=== PATIENT | male | born 1945 | race Hispanic/Latino ===

== ENCOUNTER → 2021-02-21 | Outpatient (CLI) | payer MEDICARE ==
[~2021-02-21] VITALS: Ht 172.7 cm; Wt 90.7 kg
[~2021-02-21] MED LIST: REGADENOSON 0.4 MG/5 ML PF SYG IVP ONE; REGADENOSON 0.4 MG/5 ML PF SYG IVP SCH
== END | disposition home or self-care (01) ==
LOC: SHCH 09:32
PROVIDERS: ATTEND Internal Medicine Cardiovascular Disease
DX: I25.89 Other forms of chronic ischemic heart disease (principal); R06.09 Other forms of dyspnea; I20.9 Angina pectoris, unspecified
CPT/HCPCS: 78452; 93017; 96374; A9500 ×2; J2785

== ENCOUNTER → 2021-02-23 | Outpatient (CLI) | payer MEDICARE | END | disposition home or self-care (01) | LOC: SHCH 09:44 | PROVIDERS: ATTEND Internal Medicine Cardiovascular Disease | DX: I87.2 Venous insufficiency (chronic) (peripheral) (principal) | CPT/HCPCS: 93970 ==

== ENCOUNTER → 2021-07-19 | Outpatient (CLI) | payer MEDICARE ==
[~2021-07-19] MED LIST changes: +LIDOCAINE HCL 4% LTA SOL 4 ML VIAL TP ONE; -REGADENOSON 0.4 MG/5 ML PF SYG IVP ONE; -REGADENOSON 0.4 MG/5 ML PF SYG IVP SCH
== END | disposition home or self-care (01) ==
LOC: WHH 09:33
PROVIDERS: ATTEND Family Medicine
DX: E11.622 Type 2 diabetes mellitus with other skin ulcer (principal); L97.222 Non-pressure chronic ulcer of left calf with fat layer exposed; E11.42 Type 2 diabetes mellitus with diabetic polyneuropathy; I25.799 Atherosclerosis of other coronary artery bypass graft(s) with unspecified angina pectoris; I87.8 Other specified disorders of veins; I10 Essential (primary) hypertension; N40.0 Benign prostatic hyperplasia without lower urinary tract symptoms; K21.9 Gastro-esophageal reflux disease without esophagitis; M19.90 Unspecified osteoarthritis, unspecified site; Z79.4 Long term (current) use of insulin; Z79.899 Other long term (current) drug therapy; Z79.82 Long term (current) use of aspirin
CPT/HCPCS: 11042; 11045; A4450; A6021; A6197; G0463

== ENCOUNTER 2021-11-22 13:23 | Emergency (ER) | payer MEDICARE ==
[2021-11-22 14:01] LABS: BASOPHILS % (AUTO) 0.4 % (0.0-5.0); EOSINOPHILS % (AUTO) 1.5 % (0.0-8.0); HEMATOCRIT 36.2 % (42-54); MEAN CORPUSCULAR HEMOGLOBIN 30.7 pg (27.0-33.0); MEAN CORPUSCULAR HGB CONC 32.6 g/dL (32.0-36.0); MEAN CORPUSCULAR VOLUME 94.3 fL (79-99); MONOCYTES % (AUTO) 8.1 % (3.0-13.0); NEUTROPHILS % (AUTO) 79.7 % (40.0-77.0); PLATELET COUNT (AUTO) 157 K/uL (130-400); RED BLOOD CELL COUNT(AUTO) 3.84 MIL/uL (4.50-6.20); RED CELL DISTRIBUTION WIDTH 14.4 % (11.0-15.5); WHITE BLOOD COUNT (AUTO) 7.9 K/uL (4.8-10.8)
[2021-11-22 14:17] LABS: ALBUMIN 3.4 g/dL (3.5-5.0); BILIRUBIN,TOTAL 0.6 mg/dL (0.2-1.0); CREATININE 1.7 mg/dL (0.5-1.5); POTASSIUM 3.4 mmol/L (3.5-5.1); TOTAL PROTEIN, SERUM 6.3 g/dL (6.0-8.3)
[2021-11-22 14:19] LABS: APPEARANCE,URINE CLEAR (CLEAR); BILIRUBIN,URINE NEGATIVE (NEGATIVE); COLOR,URINE YELLOW (YELLOW); GLUCOSE, URINE (UA) 250 mg/dL (NEGATIVE); KETONES,URINE NEGATIVE (NEGATIVE); LEUKOCYTE ESTERASE ,URINE NEGATIVE (NEGATIVE); NITRATE,URINE NEGATIVE (NEGATIVE); OCCULT BLOOD,URINE TRACE-INTACT (NEGATIVE); PROTEIN,URINE 100 mg/dL (NEGATIVE); UROBILINOGEN,URINE 0.2 mg/dL (0.2-1.0)
[2021-11-22 14:38] LABS: BACTERIA,URINE Few /HPF (None Seen); SQUAMOUS EPITHELIAL CELL,UR Few /HPF (0-2)
[2021-11-22 14:39] LABS: OTHER CASTS, URINE MIXED CELL CASTS 1+ /LPF (None Seen)
[2021-11-22 15:50] VITALS: BP 180/76
== END 2021-11-22 16:33 | disposition home or self-care (01) ==
LOC: EDH 13:23
DX: E10.649 Type 1 diabetes mellitus with hypoglycemia without coma (principal); E78.00 Pure hypercholesterolemia, unspecified; I10 Essential (primary) hypertension; I25.10 Atherosclerotic heart disease of native coronary artery without angina pectoris; K21.9 Gastro-esophageal reflux disease without esophagitis
CPT/HCPCS: 36415; 80053; 81001; 82948; 85025; 87088

== ENCOUNTER 2022-02-14 11:12 | Inpatient (IN) | payer MEDICARE ==
[~2022-02-14] VITALS: Ht 172.7 cm; Wt 82.2 kg
[2022-02-14 11:36] LABS: APPEARANCE,URINE Clear (CLEAR); BILIRUBIN,URINE Negative (NEGATIVE); COLOR,URINE Yellow (YELLOW); GLUCOSE, URINE (UA) Negative (NEGATIVE); KETONES,URINE Negative (NEGATIVE); LEUKOCYTE ESTERASE ,URINE Negative (NEGATIVE); NITRATE,URINE Negative (NEGATIVE); OCCULT BLOOD,URINE Negative (NEGATIVE); PH,URINE 8.5 (5.0-8.0); PROTEIN,URINE 300 mg/dL (NEGATIVE); UROBILINOGEN,URINE 0.2 mg/dL (0.2-1.0)
[2022-02-14 12:01] LABS: BACTERIA,URINE Rare /HPF (None Seen); RBC,URINE 0-1 /HPF (0-1); SQUAMOUS EPITHELIAL CELL,UR Rare /HPF (0-2); WBC,URINE 0-1 /HPF (0-1)
[2022-02-14 12:05] LABS: CREATININE 1.9 mg/dL (0.5-1.5); POTASSIUM 3.8 mmol/L (3.5-5.1)
[2022-02-14 12:10] LABS: ALBUMIN 3.2 g/dL (3.5-5.0); BASOPHILS % (AUTO) 0.3 % (0.0-5.0); BILIRUBIN,TOTAL 0.4 mg/dL (0.2-1.0); EOSINOPHILS % (AUTO) 2.4 % (0.0-8.0); LYMPHOCYTES % (AUTO) 9.8 % (21.0-51.0); MEAN CORPUSCULAR HEMOGLOBIN 29.5 pg (27.0-33.0); MEAN CORPUSCULAR HGB CONC 32.5 g/dL (32.0-36.0); MEAN CORPUSCULAR VOLUME 90.7 fL (79-99); MONOCYTES % (AUTO) 7.5 % (3.0-13.0); NEUTROPHILS % (AUTO) 79.7 % (40.0-77.0); PLATELET COUNT (AUTO) 151 K/uL (130-400); RED BLOOD CELL COUNT(AUTO) 3.97 MIL/uL (4.50-6.20); RED CELL DISTRIBUTION WIDTH 12.3 % (11.0-15.5); TOTAL PROTEIN, SERUM 6.3 g/dL (6.0-8.3)
[2022-02-14] MEDS ORDERED: FUROSEMIDE 20MG VIAL IV ONE (13:30)
[2022-02-14] MEDS ORDERED: ONDANSETRON 4MG INJ IV PRN (15:00)
[2022-02-14] MEDS ORDERED: ACETAMINOPHEN 325 MG TAB PO PRN ×2 (15:00)
[2022-02-14] MEDS ORDERED: NITROGLYCERIN 0.4 MG SL TAB SL PRN (15:00)
[2022-02-14 15:17] LABS: RETICULOCYTE % (AUTO) 0.78 % (0.42-2.23)
[2022-02-14 15:29] LABS: HEMOGLOBIN A1C 7.1 % (4.0-6.0)
[2022-02-14] MEDS ORDERED: [UNRECOGNIZED DRUG - OTHER] MISC SCH (15:30)
[2022-02-14 15:41] LABS: % IRON SATURATION 17.9 % (30-44)
[2022-02-14] MEDS ORDERED: TAMSULOSIN HCL 0.4 MG CAP.ER.24H PO SCH (16:00)
[2022-02-14] MEDS ORDERED: DOCU100T PO (16:33)
[2022-02-14] MEDS ORDERED: CLON0.1T PO (16:37)
[2022-02-14] MEDS ORDERED: DOCU-116 PO (16:37)
[2022-02-14] MEDS ORDERED: FLUT15.845 NS (16:38)
[2022-02-14] MEDS ORDERED: ASPI-1197 PO (16:39)
[2022-02-14] MEDS ORDERED: SEMA7TAB2 PO (16:41)
[2022-02-14] MEDS ORDERED: PANT40TA54 PO (16:41)
[2022-02-14] MEDS ORDERED: AMLO2.5T4 PO (16:44)
[2022-02-14] MEDS ORDERED: MONT-39 PO (16:46)
[2022-02-14] MEDS ORDERED: LISI30TA4 PO (16:47)
[2022-02-14] MEDS ORDERED: CLOP75TA32 PO (16:48)
[2022-02-14] MEDS ORDERED: CARV25TA PO (16:49)
[2022-02-14] MEDS ORDERED: HYDR12.54 PO (16:50)
[2022-02-14] MEDS ORDERED: SIME80TA78 PO (16:50)
[2022-02-14] MEDS ORDERED: GABA300S PO (16:51)
[2022-02-14] MEDS ORDERED: CETI5TAB12 PO (16:51)
[2022-02-14] MEDS ORDERED: ATOR-2 PO (16:52)
[2022-02-14] MEDS ORDERED: TAMS-1 PO (16:53)
[2022-02-14 17:25] LABS: CREATINE KINASE, TOTAL 137 U/L (21-232); MYOGLOBIN 98 ng/mL (10-92); THYROID STIMULATING HORMONE 0.47 uIU/mL (0.36-3.74)
[2022-02-14] MEDS ORDERED: LABETALOL 20MG VIAL IV PRN (18:30)
[2022-02-14] MEDS ORDERED: HYDROCHLOROTHIAZIDE 25 MG TABLET PO ONE (18:30)
[2022-02-14 19:18] VITALS: BP 163/79
[2022-02-14] MEDS ORDERED: COMPOUND IV MISC 1 EACH IVSOLN MISC PRN (19:30)
[2022-02-14] MEDS: FUROSEMIDE 40MG VIAL IVP SCH (21:07)
[2022-02-14] MEDS: BISACODYL 5 MG TABLET.DR PO SCH (21:07)
[2022-02-14] MEDS: DOCUSATE SODIUM 100 MG CAP PO SCH (21:07)
[2022-02-14] MEDS: GABAPENTIN 300 MG CAPSULE PO SCH (21:08)
[2022-02-14] MEDS: CARVEDILOL 25 MG TABLET PO SCH (21:08)
[2022-02-14] MEDS: ATORVASTATIN 40 MG TABLET PO SCH (21:08)
[2022-02-14] MEDS: LISINOPRIL 10 MG TABLET PO SCH (21:09)
[2022-02-14] MEDS: IRON SUCROSE COMPLEX 300 MG in 0.9%NACL 50ML 50 ML IV SCH (21:10)
[2022-02-14] MEDS: FAMOTIDINE 20MG TAB PO SCH (22:39)
[2022-02-14] MEDS: FLUTICASONE PROPIONATE 50MCG/SPRAY 16 GM BOTTLE EN SCH (22:40)
[2022-02-14 23:24] LABS: PROTEIN,URINE RANDOM 10.3 mg/dL (0-11.9)
[2022-02-15] VITALS (8 sets, daily range): BP systolic 131–188; BP diastolic 59–81
[2022-02-15 05:02] LABS: HEMATOCRIT 40.7 % (42-54); MEAN CORPUSCULAR HEMOGLOBIN 29.9 pg (27.0-33.0); MEAN CORPUSCULAR HGB CONC 33.2 g/dL (32.0-36.0); RED BLOOD CELL COUNT(AUTO) 4.52 MIL/uL (4.50-6.20); RED CELL DISTRIBUTION WIDTH 12.2 % (11.0-15.5); WHITE BLOOD COUNT (AUTO) 6.6 K/uL (4.8-10.8)
[2022-02-15 05:22] LABS: CREATININE 1.8 mg/dL (0.5-1.5); POTASSIUM 3.5 mmol/L (3.5-5.1)
[2022-02-15] MEDS: BISACODYL 5 MG TABLET.DR PO SCH ×2 (09:00→20:45)
[2022-02-15] MEDS ORDERED: ENOXAPARIN SODIUM 40 MG/0.4 ML SYRINGE SQ SCH (09:00)
[2022-02-15] MEDS: TAMSULOSIN HCL 0.4 MG CAP.ER.24H PO SCH ×2 (09:00→10:30)
[2022-02-15] MEDS: FAMOTIDINE 20MG TAB PO SCH (10:28)
[2022-02-15] MEDS: AMLODIPINE 2.5 MG TAB PO SCH (10:28)
[2022-02-15] MEDS: FLUTICASONE PROPIONATE 50MCG/SPRAY 16 GM BOTTLE EN SCH ×2 (10:28→21:07)
[2022-02-15] MEDS: HYDROCHLOROTHIAZIDE 25 MG TABLET PO SCH (10:29)
[2022-02-15] MEDS: CLOPIDOGREL 75MG TAB PO SCH (10:29)
[2022-02-15] MEDS: MONTELUKAST SODIUM 10 MG TAB PO SCH (10:30)
[2022-02-15] MEDS: CARVEDILOL 25 MG TABLET PO SCH ×2 (10:30→20:48)
[2022-02-15] MEDS: ASPIRIN 81MG CHEW TAB PO SCH (10:31)
[2022-02-15] MEDS: PANTOPRAZOLE 40 MG TAB DR PO SCH (10:31)
[2022-02-15] MEDS: GABAPENTIN 300 MG CAPSULE PO SCH ×2 (10:31→20:48)
[2022-02-15] MEDS: LISINOPRIL 10 MG TABLET PO SCH ×2 (10:31→20:53)
[2022-02-15] MEDS: FUROSEMIDE 40MG VIAL IVP SCH ×3 (10:31→20:49)
[2022-02-15] MEDS: DOCUSATE SODIUM 100 MG CAP PO SCH ×2 (10:32→20:44)
[2022-02-15] MEDS: IRON SUCROSE COMPLEX 300 MG in 0.9%NACL 50ML 50 ML IV SCH (11:02)
[2022-02-15] MEDS: ATORVASTATIN 40 MG TABLET PO SCH (20:45)
[2022-02-16 04:01] VITALS: BP 156/88
[2022-02-16 07:20] LABS: HEMATOCRIT 36.8 % (42-54); MEAN CORPUSCULAR HEMOGLOBIN 29.3 pg (27.0-33.0); MEAN CORPUSCULAR HGB CONC 33.4 g/dL (32.0-36.0); MEAN CORPUSCULAR VOLUME 87.6 fL (79-99); RED BLOOD CELL COUNT(AUTO) 4.2 MIL/uL (4.50-6.20); RED CELL DISTRIBUTION WIDTH 12.6 % (11.0-15.5)
[2022-02-16 07:41] LABS: CREATININE 2.3 mg/dL (0.5-1.5); POTASSIUM 3.4 mmol/L (3.5-5.1)
[2022-02-16 08:33] VITALS: BP 132/56
[2022-02-16] MEDS ORDERED: KCL 20 MEQ ERTAB PO ONE (08:35)
[2022-02-16] MEDS: TAMSULOSIN HCL 0.4 MG CAP.ER.24H PO SCH ×2 (09:00→09:36)
[2022-02-16] MEDS: IRON SUCROSE COMPLEX 300 MG in 0.9%NACL 50ML 50 ML IV SCH (09:20)
[2022-02-16] MEDS: AMLODIPINE 2.5 MG TAB PO SCH (09:21)
[2022-02-16] MEDS: FLUTICASONE PROPIONATE 50MCG/SPRAY 16 GM BOTTLE EN SCH ×2 (09:21→20:17)
[2022-02-16] MEDS: DOCUSATE SODIUM 100 MG CAP PO SCH ×2 (09:21→20:16)
[2022-02-16] MEDS: CARVEDILOL 25 MG TABLET PO SCH ×2 (09:22→20:15)
[2022-02-16] MEDS: GABAPENTIN 300 MG CAPSULE PO SCH ×2 (09:22→20:15)
[2022-02-16] MEDS: HYDROCHLOROTHIAZIDE 25 MG TABLET PO SCH (09:22)
[2022-02-16] MEDS: LISINOPRIL 10 MG TABLET PO SCH ×2 (09:23→20:15)
[2022-02-16] MEDS: CLOPIDOGREL 75MG TAB PO SCH (09:23)
[2022-02-16] MEDS: MONTELUKAST SODIUM 10 MG TAB PO SCH (09:23)
[2022-02-16] MEDS: BISACODYL 5 MG TABLET.DR PO SCH ×2 (09:23→20:15)
[2022-02-16] MEDS: ASPIRIN 81MG CHEW TAB PO SCH (09:23)
[2022-02-16] MEDS: PANTOPRAZOLE 40 MG TAB DR PO SCH (09:23)
[2022-02-16] MEDS ORDERED: 0.9%NACL 1000ML 1,000 ML IV SCH (09:30)
[2022-02-16] MEDS ORDERED: POTASSIUM CHLORIDE 10% ELIXIR 20 MEQ/15 ML UDCUP PO PRN (09:30)
[2022-02-16] MEDS ORDERED: LIDOCAINE HCL-MPF 1% 2ML VIAL IV PRN (09:30)
[2022-02-16] MEDS ORDERED: POTASSIUM CHLORIDE 20MEQ/100ML 100 ML IV PRN (09:30)
[2022-02-16] MEDS ORDERED: KCL 20 MEQ ERTAB PO PRN (09:30)
[2022-02-16] MEDS ORDERED: 0.9%NACL 1000ML 1,000 ML IV ONE (09:35)
[2022-02-16] MEDS ORDERED: LACTULOSE 20 GM/30 ML UDCUP PO ONE (12:00)
[2022-02-16 12:51] VITALS: BP 108/60
[2022-02-16 16:33] VITALS: BP 158/74
[2022-02-16 19:55] VITALS: BP 151/61
[2022-02-16] MEDS: ATORVASTATIN 40 MG TABLET PO SCH (20:16)
[2022-02-16 23:35] VITALS: BP 126/71
[2022-02-17 03:34] VITALS: BP 153/61
[2022-02-17 04:12] LABS: BASOPHILS % (AUTO) 0.3 % (0.0-5.0); EOSINOPHILS % (AUTO) 2.4 % (0.0-8.0); HEMATOCRIT 36.9 % (42-54); LYMPHOCYTES % (AUTO) 17.8 % (21.0-51.0); MEAN CORPUSCULAR HEMOGLOBIN 29.9 pg (27.0-33.0); MEAN CORPUSCULAR HGB CONC 34.1 g/dL (32.0-36.0); MEAN CORPUSCULAR VOLUME 87.6 fL (79-99); MONOCYTES % (AUTO) 13.6 % (3.0-13.0); NEUTROPHILS % (AUTO) 65.6 % (40.0-77.0); PLATELET COUNT (AUTO) 163 K/uL (130-400); RED BLOOD CELL COUNT(AUTO) 4.21 MIL/uL (4.50-6.20); RED CELL DISTRIBUTION WIDTH 12.9 % (11.0-15.5)
[2022-02-17 04:37] LABS: ALBUMIN 3.1 g/dL (3.5-5.0); BILIRUBIN,TOTAL 0.2 mg/dL (0.2-1.0); CREATININE 2.1 mg/dL (0.5-1.5); TOTAL PROTEIN, SERUM 6.1 g/dL (6.0-8.3)
[2022-02-17] MEDS: DOCUSATE SODIUM 100 MG CAP PO SCH (08:06)
[2022-02-17] MEDS: CARVEDILOL 25 MG TABLET PO SCH (08:06)
[2022-02-17] MEDS: AMLODIPINE 2.5 MG TAB PO SCH (08:06)
[2022-02-17] MEDS: CLOPIDOGREL 75MG TAB PO SCH (08:06)
[2022-02-17] MEDS: GABAPENTIN 300 MG CAPSULE PO SCH (08:06)
[2022-02-17] MEDS: LISINOPRIL 10 MG TABLET PO SCH (08:07)
[2022-02-17] MEDS: HYDROCHLOROTHIAZIDE 25 MG TABLET PO SCH (08:07)
[2022-02-17] MEDS: TAMSULOSIN HCL 0.4 MG CAP.ER.24H PO SCH (08:07)
[2022-02-17] MEDS: ASPIRIN 81MG CHEW TAB PO SCH (08:07)
[2022-02-17] MEDS: PANTOPRAZOLE 40 MG TAB DR PO SCH (08:07)
[2022-02-17] MEDS: BISACODYL 5 MG TABLET.DR PO SCH (08:07)
[2022-02-17] MEDS: MONTELUKAST SODIUM 10 MG TAB PO SCH (08:07)
[2022-02-17] MEDS: FLUTICASONE PROPIONATE 50MCG/SPRAY 16 GM BOTTLE EN SCH (08:09)
[2022-02-17] MEDS: IRON SUCROSE COMPLEX 300 MG in 0.9%NACL 50ML 50 ML IV SCH (08:13)
[2022-02-17 08:34] VITALS: BP 161/80
[2022-02-17] MEDS ORDERED: FURO20TA6 PO (11:15)
[2022-02-17 12:12] VITALS: BP 157/70
== END 2022-02-17 13:35 | disposition home or self-care (01) | DRG 291 ==
LOC: EDH 11:12 → EDHIP 14:37 → 2AH 18:11
PROVIDERS: ADMIT Internal Medicine; ATTEND Internal Medicine
DX: I13.0 Hypertensive heart and chronic kidney disease with heart failure and stage 1 through stage 4 chronic kidney disease, or unspecified chronic kidney disease (principal); I50.21 Acute systolic (congestive) heart failure; N17.9 Acute kidney failure, unspecified; E11.649 Type 2 diabetes mellitus with hypoglycemia without coma; Z87.891 Personal history of nicotine dependence; Z95.0 Presence of cardiac pacemaker; Z95.1 Presence of aortocoronary bypass graft; E78.00 Pure hypercholesterolemia, unspecified; N40.0 Benign prostatic hyperplasia without lower urinary tract symptoms; E11.22 Type 2 diabetes mellitus with diabetic chronic kidney disease; N18.9 Chronic kidney disease, unspecified; Z79.899 Other long term (current) drug therapy; I87.2 Venous insufficiency (chronic) (peripheral); I25.10 Atherosclerotic heart disease of native coronary artery without angina pectoris
CPT/HCPCS: 36415; 71045; 74018; 76770; 80048; 80053; 80061; 81001; 82270; 82550; 82570; 82607; 82728; 82746; 82948; 83036; 83540; 83550; 83874; 83880; 84132; 84145; 84156; 84300; 84443; 84484; 85025; 85027; 85045; 85378; 93005; 93306; 93970; 97039; G0378; J1650; J1756; J1940; J7030

== ENCOUNTER 2022-08-16 12:17 | Inpatient (IN) | payer MEDICARE ==
[~2022-08-16] VITALS: Ht 172.7 cm; Wt 93.8 kg
[~2022-08-16 12:17] MED LIST changes: +AMLO5TAB4 PO; +ASPI-1197 PO; +ATOR-2 PO; +BENZ-70 PO; +CALC-1009 PO; +CALC-131 PO; +CARV12.580 PO; +CEFD300C3 PO; +CETI5TAB12 PO; +CLOP75TA32 PO; +DOCU-280 PO; +DOCU100T PO; +DOXY100T21 PO; +FLUT15.845 NS; +GABA300C PO; +HYDR25 PO; -LIDOCAINE HCL 4% LTA SOL 4 ML VIAL TP ONE; +MONT-39 PO; +PANT40TA54 PO; +SEMA7TAB2 PO; +SIME80TA78 PO; +TAMS-1 PO
[2022-08-16 13:07] LABS: BASOPHILS % (AUTO) 0.3 % (0.0-5.0); EOSINOPHILS % (AUTO) 1.6 % (0.0-8.0); LYMPHOCYTES % (AUTO) 7.2 % (21.0-51.0); MEAN CORPUSCULAR HEMOGLOBIN 30.6 pg (27.0-33.0); MEAN CORPUSCULAR HGB CONC 33.4 g/dL (32.0-36.0); MEAN CORPUSCULAR VOLUME 91.6 fL (79-99); NEUTROPHILS % (AUTO) 82.6 % (40.0-77.0); PLATELET COUNT (AUTO) 157 K/uL (130-400); RED BLOOD CELL COUNT(AUTO) 3.82 MIL/uL (4.50-6.20); RED CELL DISTRIBUTION WIDTH 13.9 % (11.0-15.5); WHITE BLOOD COUNT (AUTO) 9.7 K/uL (4.8-10.8)
[2022-08-16 13:15] LABS: CREATININE 1.8 mg/dL (0.5-1.5); POTASSIUM 4.7 mmol/L (3.5-5.1)
[2022-08-16 13:22] LABS: ALBUMIN 3.7 g/dL (3.5-5.0); TOTAL PROTEIN, SERUM 7.1 g/dL (6.0-8.3)
[2022-08-16 13:25] LABS: B-TYPE NATRIURETIC PEPTIDE 872 pg/mL (0-100)
[2022-08-16 13:30] LABS: APPEARANCE,URINE CLEAR (CLEAR); BILIRUBIN,URINE NEGATIVE (NEGATIVE); COLOR,URINE LIGHT-YELLOW (YELLOW); GLUCOSE, URINE (UA) NEGATIVE (NEGATIVE); KETONES,URINE NEGATIVE (NEGATIVE); LEUKOCYTE ESTERASE ,URINE NEGATIVE Leu/uL (NEGATIVE); NITRATE,URINE NEGATIVE (NEGATIVE); OCCULT BLOOD,URINE SMALL (NEGATIVE); PH,URINE 6.5 (5.0-8.0); PROTEIN,URINE 100 mg/dL (NEGATIVE); UROBILINOGEN,URINE 0.2 mg/dL (0.2-1.0)
[2022-08-16 13:45] LABS: BACTERIA,URINE RARE /HPF (None Seen); WBC,URINE 0-1 /HPF (0-1)
[2022-08-16] MEDS ORDERED: FUROSEMIDE 40MG VIAL IV ONE (14:00)
[2022-08-16] MEDS ORDERED: LACTULOSE 20 GM/30 ML UDCUP PO PRN (16:30)
[2022-08-16] MEDS ORDERED: NITROGLYCERIN 0.4 MG SL TAB SL PRN (16:30)
[2022-08-16] MEDS ORDERED: ONDANSETRON 4MG INJ IV PRN (16:30)
[2022-08-16] MEDS ORDERED: POTASSIUM CHLORIDE 10% ELIXIR 20 MEQ/15 ML UDCUP PO PRN (16:30)
[2022-08-16] MEDS ORDERED: LIDOCAINE HCL-MPF 1% 2ML VIAL IV PRN (16:30)
[2022-08-16] MEDS ORDERED: DiphenhydrAMINE HCL 50 MG/ML VIAL IV PRN (16:30)
[2022-08-16] MEDS ORDERED: GUAIFENESIN-DM 200/20 MG 10 ML PO PRN (16:30)
[2022-08-16] MEDS ORDERED: ACETAMINOPHEN 325 MG TAB PO PRN ×2 (16:30)
[2022-08-16] MEDS ORDERED: POTASSIUM CHLORIDE 20MEQ/100ML 100 ML IV PRN (16:30)
[2022-08-16] MEDS ORDERED: KCL 20 MEQ ERTAB PO PRN (16:30)
[2022-08-16] MEDS ORDERED: MAGNESIUM 2GM PREMIX 50ML 50 ML IV PRN (16:30)
[2022-08-16] MEDS ORDERED: LABETALOL 20MG SYG IV ONE (16:30)
[2022-08-16] MEDS ORDERED: MAG/ALUM/SIMETH 30 ML UDCUP PO PRN (16:30)
[2022-08-16] MEDS ORDERED: DIPHENHYDRAMINE HCL 25 MG CAPSULE PO PRN (16:30)
[2022-08-16] MEDS ORDERED: HYDRALAZINE 20MG/ML VIAL IV ONE (17:30)
[2022-08-16] MEDS ORDERED: HYDRALAZINE 20MG/ML VIAL IV PRN (19:30)
[2022-08-16] MEDS ORDERED: LABETALOL 20MG VIAL IV PRN (19:30)
[2022-08-16] MEDS ORDERED: ACETAMINOPHEN 325 MG SUPPOSITORY RC ONE (19:48)
[2022-08-16] MEDS: CARVEDILOL 12.5 MG TABLET PO SCH (20:43)
[2022-08-16] MEDS: FAMOTIDINE 20MG VIAL IV SCH (20:44)
[2022-08-16] MEDS: FUROSEMIDE 40MG VIAL IVP SCH (20:44)
[2022-08-16] MEDS: HEPARIN 5,000 UNIT VIAL SQ SCH (20:44)
[2022-08-16] MEDS: HYDRALAZINE 25MG TABLET PO SCH (20:44)
[2022-08-16] MEDS ORDERED: FAMOTIDINE 20MG TAB PO SCH (21:00)
[2022-08-16 22:15] VITALS: BP 193/82
[2022-08-17] VITALS (7 sets, daily range): BP systolic 136–196; BP diastolic 61–80
[2022-08-17] MEDS ORDERED: REPA1TAB5 PO (00:23)
[2022-08-17] MEDS ORDERED: ACET325T51 PO (00:51)
[2022-08-17] MEDS ORDERED: ISOS30TA92 PO (00:51)
[2022-08-17] MEDS ORDERED: PIOG30TA70 PO (00:51)
[2022-08-17] MEDS ORDERED: HYDR12.54 PO (00:51)
[2022-08-17] MEDS ORDERED: LISI40TA9 PO (00:51)
[2022-08-17] MEDS ORDERED: DEXTROSE 50%-WATER 50 ML DISP.SYRIN IV PRN (01:30)
[2022-08-17] MEDS ORDERED: GLUCAGON 1MG KIT 1 MG ML IM PRN (01:30)
[2022-08-17 05:34] LABS: BASOPHILS % (AUTO) 0.3 % (0.0-5.0); EOSINOPHILS % (AUTO) 1.6 % (0.0-8.0); HEMATOCRIT 34.7 % (42-54); LYMPHOCYTES % (AUTO) 10.9 % (21.0-51.0); MEAN CORPUSCULAR HGB CONC 33.7 g/dL (32.0-36.0); MEAN CORPUSCULAR VOLUME 91.8 fL (79-99); MONOCYTES % (AUTO) 11.7 % (3.0-13.0); NEUTROPHILS % (AUTO) 75.2 % (40.0-77.0); PLATELET COUNT (AUTO) 151 K/uL (130-400); RED BLOOD CELL COUNT(AUTO) 3.78 MIL/uL (4.50-6.20); RED CELL DISTRIBUTION WIDTH 13.9 % (11.0-15.5); WHITE BLOOD COUNT (AUTO) 6.9 K/uL (4.8-10.8)
[2022-08-17 05:58] LABS: CREATININE 2.1 mg/dL (0.5-1.5); MAGNESIUM 1.8 mg/dL (1.80-2.40); PHOSPHORUS 3.3 mg/dL (2.5-4.9); POTASSIUM 3.9 mmol/L (3.5-5.1); THYROID STIMULATING HORMONE 0.66 uIU/mL (0.36-3.74)
[2022-08-17] MEDS: INSULIN HUMULIN R 100 UNIT/ML 3ML SQ SCH ×4 (06:42→21:00)
[2022-08-17] MEDS: SPIRONOLACTONE 25 MG TAB PO SCH (10:45)
[2022-08-17] MEDS: HYDRALAZINE 25MG TABLET PO SCH ×3 (10:45→22:09)
[2022-08-17] MEDS: FUROSEMIDE 40MG VIAL IVP SCH ×2 (10:45→22:09)
[2022-08-17] MEDS: FAMOTIDINE 20MG VIAL IV SCH ×2 (10:45→22:10)
[2022-08-17] MEDS: CARVEDILOL 12.5 MG TABLET PO SCH ×2 (10:46→22:09)
[2022-08-17] MEDS: HEPARIN 5,000 UNIT VIAL SQ SCH ×3 (10:56→22:10)
[2022-08-17] MEDS: ASPIRIN 81MG CHEW TAB PO SCH (14:30)
[2022-08-17] MEDS ORDERED: ATORVASTATIN 40 MG TABLET PO SCH (21:00)
[2022-08-17] MEDS: GABAPENTIN 300 MG CAPSULE PO SCH (22:09)
[2022-08-18 02:53] VITALS: BP 162/62
[2022-08-18 03:49] LABS: BASOPHILS % (AUTO) 0.3 % (0.0-5.0); EOSINOPHILS % (AUTO) 1.4 % (0.0-8.0); HEMATOCRIT 33.7 % (42-54); LYMPHOCYTES % (AUTO) 14.9 % (21.0-51.0); MEAN CORPUSCULAR HEMOGLOBIN 30.2 pg (27.0-33.0); MEAN CORPUSCULAR HGB CONC 33.2 g/dL (32.0-36.0); MEAN CORPUSCULAR VOLUME 90.8 fL (79-99); MONOCYTES % (AUTO) 13.1 % (3.0-13.0); PLATELET COUNT (AUTO) 158 K/uL (130-400); RED BLOOD CELL COUNT(AUTO) 3.71 MIL/uL (4.50-6.20); RED CELL DISTRIBUTION WIDTH 13.9 % (11.0-15.5); WHITE BLOOD COUNT (AUTO) 7.7 K/uL (4.8-10.8)
[2022-08-18 04:03] LABS: ALBUMIN 3.1 g/dL (3.5-5.0); CREATININE 2.1 mg/dL (0.5-1.5); POTASSIUM 3.8 mmol/L (3.5-5.1); TOTAL PROTEIN, SERUM 6.4 g/dL (6.0-8.3)
[2022-08-18] MEDS: INSULIN HUMULIN R 100 UNIT/ML 3ML SQ SCH (06:49)
[2022-08-18 08:00] VITALS: BP 188/78
[2022-08-18] MEDS ORDERED: ISOSORBIDE MONO 30MG SR TAB PO SCH (09:00)
[2022-08-18] MEDS ORDERED: AMLODIPINE 5 MG TAB PO SCH (09:00)
[2022-08-18] MEDS ORDERED: TAMSULOSIN HCL 0.4 MG CAP.ER.24H PO SCH (09:00)
[2022-08-18] MEDS ORDERED: MONTELUKAST SODIUM 10 MG TAB PO SCH (09:00)
[2022-08-18] MEDS ORDERED: CLOPIDOGREL 75MG TAB PO SCH (09:00)
[2022-08-18] MEDS ORDERED: PIOGLITAZONE 30MG TAB PO SCH (09:00)
[2022-08-18] MEDS ORDERED: LISINOPRIL 40 MG TABLET PO SCH (09:00)
[2022-08-18] MEDS ORDERED: HYDROCHLOROTHIAZIDE 25 MG TABLET PO SCH (09:00)
[2022-08-18] MEDS: FAMOTIDINE 20MG VIAL IV SCH (09:20)
[2022-08-18] MEDS: FUROSEMIDE 40MG VIAL IVP SCH (09:21)
[2022-08-18] MEDS: GABAPENTIN 300 MG CAPSULE PO SCH (09:21)
[2022-08-18] MEDS: SPIRONOLACTONE 25 MG TAB PO SCH (09:21)
[2022-08-18] MEDS: HYDRALAZINE 25MG TABLET PO SCH (09:21)
[2022-08-18 09:22] VITALS: BP 188/78
[2022-08-18] MEDS: CARVEDILOL 12.5 MG TABLET PO SCH (09:22)
[2022-08-18] MEDS: ASPIRIN 81MG CHEW TAB PO SCH (09:22)
[2022-08-18] MEDS: HEPARIN 5,000 UNIT VIAL SQ SCH (09:33)
== END 2022-08-18 14:00 | disposition home or self-care (01) | DRG 291 ==
LOC: EDH 12:17 → EDHIP 16:29 → 3DH 20:40
PROVIDERS: ADMIT Internal Medicine; ATTEND Internal Medicine
DX: I13.0 Hypertensive heart and chronic kidney disease with heart failure and stage 1 through stage 4 chronic kidney disease, or unspecified chronic kidney disease (principal); I50.43 Acute on chronic combined systolic (congestive) and diastolic (congestive) heart failure; J96.01 Acute respiratory failure with hypoxia; L97.818 Non-pressure chronic ulcer of other part of right lower leg with other specified severity; I16.0 Hypertensive urgency; I83.018 Varicose veins of right lower extremity with ulcer other part of lower leg; N18.30 Chronic kidney disease, stage 3 unspecified; E11.22 Type 2 diabetes mellitus with diabetic chronic kidney disease; N40.0 Benign prostatic hyperplasia without lower urinary tract symptoms; R53.81 Other malaise; N18.32 Chronic kidney disease, stage 3b; D64.9 Anemia, unspecified; E78.00 Pure hypercholesterolemia, unspecified; I25.10 Atherosclerotic heart disease of native coronary artery without angina pectoris; Z79.82 Long term (current) use of aspirin; Z95.810 Presence of automatic (implantable) cardiac defibrillator; Z79.84 Long term (current) use of oral hypoglycemic drugs; Z95.1 Presence of aortocoronary bypass graft; Z79.899 Other long term (current) drug therapy
CPT/HCPCS: 36415; 71045; 80048; 80053; 81001; 82948; 83735; 83880; 84100; 84443; 84484; 85025; 93005; 93306; 93356; G0378; J0360; J1644; J1815; J1940; J3475; J3490

== ENCOUNTER → 2022-12-11 | Outpatient (CLI) | payer MEDICARE ==
[~2022-12-11] MED LIST changes: +ACET325T51 PO; -BENZ-70 PO; -CALC-1009 PO; -CALC-131 PO; -CEFD300C3 PO; -CETI5TAB12 PO; -DOCU-280 PO; -DOXY100T21 PO; -FLUT15.845 NS; +HYDR12.54 PO; +ISOS30TA92 PO; +LISI40TA9 PO; +PIOG30TA70 PO; +REPA1TAB5 PO; -SEMA7TAB2 PO; -SIME80TA78 PO
== END | disposition home or self-care (01) ==
LOC: WHH 08:36
PROVIDERS: ATTEND Family Medicine
DX: I87.313 Chronic venous hypertension (idiopathic) with ulcer of bilateral lower extremity (principal); E11.622 Type 2 diabetes mellitus with other skin ulcer; L97.812 Non-pressure chronic ulcer of other part of right lower leg with fat layer exposed; L97.822 Non-pressure chronic ulcer of other part of left lower leg with fat layer exposed; L97.221 Non-pressure chronic ulcer of left calf limited to breakdown of skin; E11.42 Type 2 diabetes mellitus with diabetic polyneuropathy; K21.9 Gastro-esophageal reflux disease without esophagitis; I25.10 Atherosclerotic heart disease of native coronary artery without angina pectoris; N40.0 Benign prostatic hyperplasia without lower urinary tract symptoms; M19.90 Unspecified osteoarthritis, unspecified site; Z95.0 Presence of cardiac pacemaker; Z95.1 Presence of aortocoronary bypass graft; Z87.891 Personal history of nicotine dependence; Z79.82 Long term (current) use of aspirin; Z79.899 Other long term (current) drug therapy
CPT/HCPCS: 11042; A6197; A4450

== ENCOUNTER → 2022-12-20 | Outpatient (CLI) | payer MEDICARE | END | disposition home or self-care (01) | LOC: WHH 10:29 | PROVIDERS: ATTEND Family Medicine | DX: I87.313 Chronic venous hypertension (idiopathic) with ulcer of bilateral lower extremity (principal); E11.622 Type 2 diabetes mellitus with other skin ulcer; L97.812 Non-pressure chronic ulcer of other part of right lower leg with fat layer exposed; L97.822 Non-pressure chronic ulcer of other part of left lower leg with fat layer exposed; L97.221 Non-pressure chronic ulcer of left calf limited to breakdown of skin; E11.42 Type 2 diabetes mellitus with diabetic polyneuropathy; K21.9 Gastro-esophageal reflux disease without esophagitis; I25.10 Atherosclerotic heart disease of native coronary artery without angina pectoris; N40.0 Benign prostatic hyperplasia without lower urinary tract symptoms; M19.90 Unspecified osteoarthritis, unspecified site; Z95.0 Presence of cardiac pacemaker; Z95.1 Presence of aortocoronary bypass graft; Z87.891 Personal history of nicotine dependence; Z79.82 Long term (current) use of aspirin; Z79.899 Other long term (current) drug therapy | CPT/HCPCS: 93922 ==

== ENCOUNTER → 2022-12-21 | Outpatient (CLI) | payer MEDICARE ==
[~2022-12-21] MED LIST changes: +HONEY 1 APPL/ML TUBE TP ONE; +LIDOCAINE HCL 4% LTA SOL 4 ML VIAL TP ONE
== END | disposition home or self-care (01) ==
LOC: WHH 09:23
PROVIDERS: ATTEND Family Medicine
DX: I87.313 Chronic venous hypertension (idiopathic) with ulcer of bilateral lower extremity (principal); E11.622 Type 2 diabetes mellitus with other skin ulcer; L97.822 Non-pressure chronic ulcer of other part of left lower leg with fat layer exposed; L97.812 Non-pressure chronic ulcer of other part of right lower leg with fat layer exposed; L97.221 Non-pressure chronic ulcer of left calf limited to breakdown of skin; S80.821A Blister (nonthermal), right lower leg, initial encounter; E11.42 Type 2 diabetes mellitus with diabetic polyneuropathy; K21.9 Gastro-esophageal reflux disease without esophagitis; I25.10 Atherosclerotic heart disease of native coronary artery without angina pectoris; N40.0 Benign prostatic hyperplasia without lower urinary tract symptoms; M19.90 Unspecified osteoarthritis, unspecified site; Z95.0 Presence of cardiac pacemaker; Z95.1 Presence of aortocoronary bypass graft; Z87.891 Personal history of nicotine dependence; Z79.82 Long term (current) use of aspirin; Z79.899 Other long term (current) drug therapy; X58.XXXA Exposure to other specified factors, initial encounter; Y93.89 Activity, other specified; Y92.89 Other specified places as the place of occurrence of the external cause; Y99.8 Other external cause status
CPT/HCPCS: 11042; A6196

== ENCOUNTER → 2022-12-26 | Outpatient (CLI) | payer MEDICARE ==
[~2022-12-26] MED LIST changes: -HONEY 1 APPL/ML TUBE TP ONE; -LIDOCAINE HCL 4% LTA SOL 4 ML VIAL TP ONE
== END | disposition home or self-care (01) ==
LOC: RAH 10:05
PROVIDERS: ATTEND Nurse Practitioner Family
DX: I70.293 Other atherosclerosis of native arteries of extremities, bilateral legs (principal); I87.2 Venous insufficiency (chronic) (peripheral); I83.93 Asymptomatic varicose veins of bilateral lower extremities
CPT/HCPCS: 93925; 93970

== ENCOUNTER → 2023-01-11 | Outpatient (CLI) | payer MEDICARE ==
[~2023-01-11] MED LIST changes: +LIDOCAINE HCL 4% LTA SOL 4 ML VIAL TP ONE
== END | disposition home or self-care (01) ==
LOC: WHH 09:34
PROVIDERS: ATTEND Family Medicine
DX: I87.313 Chronic venous hypertension (idiopathic) with ulcer of bilateral lower extremity (principal); E11.622 Type 2 diabetes mellitus with other skin ulcer; L97.822 Non-pressure chronic ulcer of other part of left lower leg with fat layer exposed; L97.812 Non-pressure chronic ulcer of other part of right lower leg with fat layer exposed; L97.221 Non-pressure chronic ulcer of left calf limited to breakdown of skin; S80.821D Blister (nonthermal), right lower leg, subsequent encounter; E11.42 Type 2 diabetes mellitus with diabetic polyneuropathy; K21.9 Gastro-esophageal reflux disease without esophagitis; I25.10 Atherosclerotic heart disease of native coronary artery without angina pectoris; N40.0 Benign prostatic hyperplasia without lower urinary tract symptoms; M19.90 Unspecified osteoarthritis, unspecified site; Z95.0 Presence of cardiac pacemaker; Z95.1 Presence of aortocoronary bypass graft; Z87.891 Personal history of nicotine dependence; Z79.82 Long term (current) use of aspirin; Z79.899 Other long term (current) drug therapy; X58.XXXD Exposure to other specified factors, subsequent encounter
CPT/HCPCS: G0463; A4450

== ENCOUNTER 2023-05-02 11:15 | Inpatient (IN) | payer MEDICARE ==
[~2023-05-02] VITALS: Ht 172.7 cm; Wt 91.6 kg
[~2023-05-02 11:15] MED LIST changes: -ACET325T51 PO; +AEC81 PO; -ASPI-1197 PO; -ATOR-2 PO; +ATOR40TA69 PO; +CALC1TAB2 PO; -CARV12.580 PO; +CLOP-31 PO; -CLOP75TA32 PO; +FLUT16H NS; -HYDR12.54 PO; +HYDR25TA PO; -ISOS30TA92 PO; -LIDOCAINE HCL 4% LTA SOL 4 ML VIAL TP ONE; +MULT-507 PO; +SEMA14TA2 PO; +SPIR25TA6 PO
[2023-05-02 13:03] LABS: BASOPHILS # (AUTO) 0.02 K/uL (0.00-0.20); BASOPHILS % (AUTO) 0.3 % (0.0-5.0); EOSINOPHILS # (AUTO) 0.16 K/uL (0.00-0.70); EOSINOPHILS % (AUTO) 2.5 % (0.0-8.0); HEMATOCRIT 30.7 % (42-54); IMMATURE GRANULOCYTE ABSOLUTE 0.03 K/uL (0-1); LYMPHOCYTES # (AUTO) 0.8 K/uL (1.0-4.8); LYMPHOCYTES % (AUTO) 12.1 % (21.0-51.0); MEAN CORPUSCULAR HEMOGLOBIN 29.6 pg (27.0-33.0); MEAN CORPUSCULAR HGB CONC 32.6 g/dL (32.0-36.0); MEAN CORPUSCULAR VOLUME 90.8 fL (79-99); MONOCYTES # (AUTO) 0.7 K/uL (0.1-1.0); MONOCYTES % (AUTO) 10.3 % (3.0-13.0); NEUTROPHILS # (AUTO) 4.7 K/uL (1.8-7.7); NEUTROPHILS % (AUTO) 74.3 % (40.0-77.0); PLATELET COUNT (AUTO) 210 K/uL (130-400); RED BLOOD CELL COUNT(AUTO) 3.38 MIL/uL (4.50-6.20); RED CELL DISTRIBUTION WIDTH 15.2 % (11.0-15.5); WHITE BLOOD COUNT (AUTO) 6.3 K/uL (4.8-10.8)
[2023-05-02 13:15] LABS: INR 0.97 (0.85-1.15); PROTHROMBIN TIME 11.3 SEC (9.6-11.6)
[2023-05-02 13:16] LABS: PARTIAL THROMBOPLASTIN TIME 34.2 SEC (26.3-35.5)
[2023-05-02 13:26] LABS: ALBUMIN 3.9 g/dL (3.5-5.0); BILIRUBIN,TOTAL 0.4 mg/dL (0.2-1.0); CREATININE 2.3 mg/dL (0.5-1.5); POTASSIUM 5.7 mmol/L (3.5-5.1); TOTAL PROTEIN, SERUM 7.4 g/dL (6.0-8.3)
[2023-05-02] MEDS ORDERED: KAYEXALATE 15GM/60ML PO ONE (14:00)
[2023-05-02 14:09] LABS: ERYTHROCYTE SEDIMENTATION RATE 71 MM/HR (0-20)
[2023-05-02] MEDS ORDERED: VANCOMYCIN PROTOCOL PER PHARMACY IV SCH (16:00)
[2023-05-02 16:19] LABS: APPEARANCE,URINE CLEAR (CLEAR); BILIRUBIN,URINE NEGATIVE (NEGATIVE); COLOR,URINE LIGHT-YELLOW (YELLOW); GLUCOSE, URINE (UA) NEGATIVE (NEGATIVE); KETONES,URINE NEGATIVE (NEGATIVE); LEUKOCYTE ESTERASE ,URINE NEGATIVE Leu/uL (NEGATIVE); NITRATE,URINE NEGATIVE (NEGATIVE); OCCULT BLOOD,URINE NEGATIVE (NEGATIVE); PH,URINE 5.5 (5.0-8.0); PROTEIN,URINE 50 mg/dL (NEGATIVE); UROBILINOGEN,URINE 0.2 mg/dL (0.2-1.0)
[2023-05-02 16:22] LABS: ADD UA MICROSCOPIC YES
[2023-05-02 16:23] LABS: MUCUS,URINE RARE LPF (None Seen); SQUAMOUS EPITHELIAL CELL,UR RARE /HPF (0-2); WBC,URINE 0-1 /HPF (0-1)
[2023-05-02] MEDS ORDERED: VANCOMYCIN 2GM/500 ML BAG 500 ML IV SCH (16:30)
[2023-05-02] MEDS ORDERED: GLUCAGON 1MG KIT 1 MG ML IM PRN (16:30)
[2023-05-02] MEDS: INSULIN HUMULIN R 100 UNIT/ML 3ML SQ SCH ×2 (16:30→21:00)
[2023-05-02] MEDS ORDERED: DEXTROSE 50%-WATER 50 ML DISP.SYRIN IV PRN (16:30)
[2023-05-02] MEDS: HEPARIN 5,000 UNIT VIAL SQ SCH (17:02)
[2023-05-02] MEDS: CEFEPIME HCL 2 GM VIAL IVPB SCH (17:02)
[2023-05-03] VITALS (8 sets, daily range): BP systolic 141–179; BP diastolic 58–70; PULSE 64–80; RESP 18–20; O2SAT 98
[2023-05-03] MEDS: CEFEPIME HCL 2 GM VIAL IVPB SCH ×2 (04:33→16:51)
[2023-05-03] MEDS: HEPARIN 5,000 UNIT VIAL SQ SCH ×2 (04:35→16:49)
[2023-05-03] MEDS ORDERED: HYDR-4154 PO (05:00)
[2023-05-03] MEDS ORDERED: CLON0.1T PO (05:00)
[2023-05-03] MEDS ORDERED: ISOS20TA85 PO (05:00)
[2023-05-03] MEDS ORDERED: SPIR50TA PO (05:00)
[2023-05-03] MEDS ORDERED: FURO20TA4 PO (05:00)
[2023-05-03] MEDS ORDERED: PROM25TA7 PO (05:00)
[2023-05-03] MEDS ORDERED: CETI10TA57 PO (05:00)
[2023-05-03] MEDS: INSULIN HUMULIN R 100 UNIT/ML 3ML SQ SCH ×4 (05:35→20:45)
[2023-05-03 05:45] LABS: HEMATOCRIT 27.4 % (42-54); MEAN CORPUSCULAR HEMOGLOBIN 29.4 pg (27.0-33.0); MEAN CORPUSCULAR HGB CONC 32.1 g/dL (32.0-36.0); MEAN CORPUSCULAR VOLUME 91.6 fL (79-99); RED BLOOD CELL COUNT(AUTO) 2.99 MIL/uL (4.50-6.20); RED CELL DISTRIBUTION WIDTH 14.9 % (11.0-15.5); WHITE BLOOD COUNT (AUTO) 5.2 K/uL (4.8-10.8)
[2023-05-03 06:14] LABS: ALBUMIN 2.9 g/dL (3.5-5.0); BILIRUBIN,TOTAL 0.3 mg/dL (0.2-1.0); CREATININE 2.1 mg/dL (0.5-1.5); POTASSIUM 4.5 mmol/L (3.5-5.1); TOTAL PROTEIN, SERUM 6.3 g/dL (6.0-8.3)
[2023-05-03] MEDS ORDERED: NON-FORMULARY MEDICATION 1 EACH (Hydralazine HCl 50 MG) PO SCH (14:00)
[2023-05-03] MEDS: HYDRALAZINE 25MG TABLET PO SCH ×2 (14:30→20:45)
[2023-05-03] MEDS: VANCOMYCIN 1G/250ML KIT 250 ML IV SCH (16:58)
[2023-05-03] MEDS: CETIRIZINE HCL 5 MG TABLET PO SCH (20:44)
[2023-05-03] MEDS: FUROSEMIDE 20 MG TABLET PO SCH (20:44)
[2023-05-03] MEDS: SPIRONOLACTONE 25 MG TAB PO SCH (20:44)
[2023-05-03] MEDS: ATORVASTATIN 40 MG TABLET PO SCH (20:44)
[2023-05-03] MEDS ORDERED: SPIRONOLACTONE 50 MG PO SCH (21:00)
[2023-05-03] MEDS ORDERED: NON-FORMULARY MEDICATION 1 EACH (Cetirizine HCl 10 MG) PO SCH (21:00)
[2023-05-04] VITALS (13 sets, daily range): BP systolic 130–184; BP diastolic 56–255; PULSE 60–87; RESP 18–20; O2SAT 99
[2023-05-04] MEDS: HEPARIN 5,000 UNIT VIAL SQ SCH ×2 (03:17→16:00)
[2023-05-04] MEDS: CEFEPIME HCL 2 GM VIAL IVPB SCH ×2 (03:17→16:18)
[2023-05-04] MEDS: INSULIN HUMULIN R 100 UNIT/ML 3ML SQ SCH ×4 (05:36→20:30)
[2023-05-04] MEDS: MULTIVITAMIN WITH MINERALS TABLET PO SCH (08:51)
[2023-05-04] MEDS: SPIRONOLACTONE 25 MG TAB PO SCH ×2 (08:51→20:28)
[2023-05-04] MEDS: FUROSEMIDE 20 MG TABLET PO SCH ×2 (08:51→20:29)
[2023-05-04] MEDS: TAMSULOSIN HCL 0.4 MG CAP.ER.24H PO SCH (08:52)
[2023-05-04] MEDS: LISINOPRIL 40 MG TABLET PO SCH (08:52)
[2023-05-04] MEDS: ASPIRIN 81 MG EC TAB PO SCH (08:52)
[2023-05-04] MEDS: HYDRALAZINE 25MG TABLET PO SCH ×3 (08:53→20:29)
[2023-05-04] MEDS: AMLODIPINE 5 MG TAB PO SCH (08:53)
[2023-05-04] MEDS: ISOSORBIDE MONONITRATE 20 MG TABLET PO SCH (08:54)
[2023-05-04] MEDS ORDERED: EAC PO SCH (09:00)
[2023-05-04] MEDS ORDERED: [UNRECOGNIZED DRUG - OTHER] PO SCH (09:00)
[2023-05-04] MEDS: VITAMIN D3 PO SCH (09:00)
[2023-05-04] MEDS ORDERED: IRON MINERALS PO SCH (09:00)
[2023-05-04] MEDS: CLOPIDOGREL 75MG TAB PO SCH (09:00)
[2023-05-04] MEDS ORDERED: MULTIVITAMIN PO SCH (09:00)
[2023-05-04] MEDS: CALCIUM CARBONATE PO SCH (09:00)
[2023-05-04] MEDS: 0.9%NACL 1000ML 1,000 ML IV SCH ×2 (13:20)
[2023-05-04] MEDS ORDERED: IODIXANOL 320 MG/ML 100 ML VIAL ONE ×2 (16:12→17:45)
[2023-05-04] MEDS ORDERED: HEPARIN 10,000 UNIT/10ML (1,000 UNIT/ML) VIAL ONE (16:12)
[2023-05-04] MEDS ORDERED: MIDAZOLAM HCL 1 MG/ML 2ML VIAL ONE (16:12)
[2023-05-04] MEDS ORDERED: FENTANYL CITRATE PF 50 MCG/1 ML 2ML VIAL ONE (16:12)
[2023-05-04] MEDS ORDERED: LIDOCAINE HCL 400MG/20ML VIAL ONE (16:12)
[2023-05-04] MEDS ORDERED: NITROGLYCERIN 50MG VIAL ONE (16:12)
[2023-05-04] MEDS ORDERED: CLOPIDOGREL 75MG TAB ONE (18:52)
[2023-05-04] MEDS ORDERED: 0.9%NACL 1000ML 1,000 ML IV SCH (19:00)
[2023-05-04] MEDS: VANCOMYCIN 1G/250ML KIT 250 ML IV SCH (20:27)
[2023-05-04] MEDS: ATORVASTATIN 40 MG TABLET PO SCH (20:28)
[2023-05-04] MEDS: CETIRIZINE HCL 5 MG TABLET PO SCH (20:28)
[2023-05-05] VITALS (8 sets, daily range): BP systolic 145–189; BP diastolic 60–90; PULSE 70–79; RESP 18–20; O2SAT 99
[2023-05-05] MEDS: 0.9%NACL 1000ML 1,000 ML IV SCH ×2 (02:18→16:46)
[2023-05-05] MEDS: CEFEPIME HCL 2 GM VIAL IVPB SCH ×2 (03:54→16:42)
[2023-05-05] MEDS: HEPARIN 5,000 UNIT VIAL SQ SCH ×2 (03:57→16:43)
[2023-05-05] MEDS: INSULIN HUMULIN R 100 UNIT/ML 3ML SQ SCH ×4 (06:44→21:03)
[2023-05-05 08:51] LABS: BASOPHILS # (AUTO) 0.02 K/uL (0.00-0.20); BASOPHILS % (AUTO) 0.4 % (0.0-5.0); EOSINOPHILS # (AUTO) 0.16 K/uL (0.00-0.70); EOSINOPHILS % (AUTO) 3.2 % (0.0-8.0); HEMATOCRIT 26.1 % (42-54); IMMATURE GRANULOCYTE ABSOLUTE 0.01 K/uL (0-1); LYMPHOCYTES # (AUTO) 0.6 K/uL (1.0-4.8); LYMPHOCYTES % (AUTO) 12.5 % (21.0-51.0); MEAN CORPUSCULAR HEMOGLOBIN 29.3 pg (27.0-33.0); MEAN CORPUSCULAR VOLUME 88.8 fL (79-99); MONOCYTES # (AUTO) 0.5 K/uL (0.1-1.0); MONOCYTES % (AUTO) 10.1 % (3.0-13.0); NEUTROPHILS # (AUTO) 3.6 K/uL (1.8-7.7); NEUTROPHILS % (AUTO) 73.6 % (40.0-77.0); PLATELET COUNT (AUTO) 173 K/uL (130-400); RED BLOOD CELL COUNT(AUTO) 2.94 MIL/uL (4.50-6.20); RED CELL DISTRIBUTION WIDTH 14.6 % (11.0-15.5)
[2023-05-05] MEDS: CALCIUM CARBONATE PO SCH (09:00)
[2023-05-05] MEDS: VITAMIN D3 PO SCH (09:00)
[2023-05-05] MEDS: ISOSORBIDE MONONITRATE 20 MG TABLET PO SCH (09:04)
[2023-05-05] MEDS: CLOPIDOGREL 75MG TAB PO SCH (09:05)
[2023-05-05] MEDS: TAMSULOSIN HCL 0.4 MG CAP.ER.24H PO SCH (09:05)
[2023-05-05] MEDS: AMLODIPINE 5 MG TAB PO SCH (09:06)
[2023-05-05] MEDS: FUROSEMIDE 20 MG TABLET PO SCH ×2 (09:06→20:59)
[2023-05-05] MEDS: ASPIRIN 81 MG EC TAB PO SCH (09:06)
[2023-05-05] MEDS: HYDRALAZINE 25MG TABLET PO SCH ×3 (09:06→20:58)
[2023-05-05] MEDS: MULTIVITAMIN WITH MINERALS TABLET PO SCH (09:06)
[2023-05-05] MEDS: SPIRONOLACTONE 25 MG TAB PO SCH ×2 (09:06→20:58)
[2023-05-05] MEDS: LISINOPRIL 40 MG TABLET PO SCH (09:07)
[2023-05-05 09:16] LABS: % IRON SATURATION 26.7 % (30-44)
[2023-05-05] MEDS ORDERED: COMPOUND IV MISC 1 EACH IVSOLN MISC PRN (14:00)
[2023-05-05] MEDS: IRON SUCROSE COMPLEX 300 MG in 0.9% NACL 250ML 250 ML IV SCH (14:14)
[2023-05-05] MEDS: VANCOMYCIN 750MG VIAL IVPB SCH (18:45)
[2023-05-05] MEDS: ATORVASTATIN 40 MG TABLET PO SCH (20:58)
[2023-05-05] MEDS: CETIRIZINE HCL 5 MG TABLET PO SCH (20:59)
[2023-05-05] MEDS ORDERED: EPOETIN ALFA-EPBX (NON-ESRD) 10,000 UNIT/ML VIAL SQ ONE (21:00)
[2023-05-06] VITALS (8 sets, daily range): BP systolic 131–163; BP diastolic 60–70; PULSE 64–76; RESP 18–20; O2SAT 99–100
[2023-05-06] MEDS ORDERED: CLONIDINE HCL 0.1 MG TABLET PO ONE (00:30)
[2023-05-06] MEDS ORDERED: HYDROCODONE/ACETAMINOPHEN 5/325 MG TAB PO ONE (03:00)
[2023-05-06] MEDS: CEFEPIME HCL 2 GM VIAL IVPB SCH ×2 (04:00→16:18)
[2023-05-06] MEDS: HEPARIN 5,000 UNIT VIAL SQ SCH ×2 (04:02→16:19)
[2023-05-06 04:49] LABS: MEAN CORPUSCULAR HGB CONC 32.5 g/dL (32.0-36.0); MEAN CORPUSCULAR VOLUME 89.2 fL (79-99); RED BLOOD CELL COUNT(AUTO) 2.69 MIL/uL (4.50-6.20); RED CELL DISTRIBUTION WIDTH 14.6 % (11.0-15.5); WHITE BLOOD COUNT (AUTO) 5.2 K/uL (4.8-10.8)
[2023-05-06 05:03] LABS: CREATININE 1.9 mg/dL (0.5-1.5)
[2023-05-06 05:04] LABS: ALBUMIN 2.7 g/dL (3.5-5.0); BILIRUBIN,TOTAL 0.3 mg/dL (0.2-1.0); MAGNESIUM 1.6 mg/dL (1.80-2.40); PHOSPHORUS 2.8 mg/dL (2.5-4.9); TOTAL PROTEIN, SERUM 6.1 g/dL (6.0-8.3); URIC ACID 5.4 mg/dL (2.6-7.2)
[2023-05-06] MEDS: 0.9%NACL 1000ML 1,000 ML IV SCH ×2 (05:23→18:40)
[2023-05-06] MEDS: INSULIN HUMULIN R 100 UNIT/ML 3ML SQ SCH ×4 (06:46→21:41)
[2023-05-06] MEDS: CALCIUM CARBONATE PO SCH (09:00)
[2023-05-06] MEDS: VITAMIN D3 PO SCH (09:00)
[2023-05-06] MEDS: FUROSEMIDE 20 MG TABLET PO SCH ×2 (09:08→21:38)
[2023-05-06] MEDS: ISOSORBIDE MONONITRATE 20 MG TABLET PO SCH (09:09)
[2023-05-06] MEDS: TAMSULOSIN HCL 0.4 MG CAP.ER.24H PO SCH (09:10)
[2023-05-06] MEDS: ASPIRIN 81 MG EC TAB PO SCH (09:10)
[2023-05-06] MEDS: MULTIVITAMIN WITH MINERALS TABLET PO SCH (09:10)
[2023-05-06] MEDS: SPIRONOLACTONE 25 MG TAB PO SCH ×2 (09:10→21:38)
[2023-05-06] MEDS: AMLODIPINE 5 MG TAB PO SCH (09:10)
[2023-05-06] MEDS: Vitamin B Complex/Vit C/Folic Acid PO SCH (09:10)
[2023-05-06] MEDS: CLOPIDOGREL 75MG TAB PO SCH (09:10)
[2023-05-06] MEDS: HYDRALAZINE 25MG TABLET PO SCH ×3 (09:11→21:38)
[2023-05-06] MEDS: IRON SUCROSE COMPLEX 300 MG in 0.9% NACL 250ML 250 ML IV SCH (09:11)
[2023-05-06] MEDS: LISINOPRIL 40 MG TABLET PO SCH (09:11)
[2023-05-06] MEDS: MAGNESIUM 2GM PREMIX 50ML 50 ML IV PRN (13:08)
[2023-05-06] MEDS: VANCOMYCIN 750MG VIAL IVPB SCH (18:35)
[2023-05-06] MEDS: CETIRIZINE HCL 5 MG TABLET PO SCH (21:37)
[2023-05-06] MEDS: ATORVASTATIN 40 MG TABLET PO SCH (21:38)
[2023-05-07] VITALS (7 sets, daily range): BP systolic 142–160; BP diastolic 60–96; PULSE 69–83; RESP 18–20; O2SAT 100
[2023-05-07] MEDS: CEFEPIME HCL 2 GM VIAL IVPB SCH ×2 (04:00→18:09)
[2023-05-07] MEDS: HEPARIN 5,000 UNIT VIAL SQ SCH ×2 (04:00→16:00)
[2023-05-07] MEDS: INSULIN HUMULIN R 100 UNIT/ML 3ML SQ SCH ×4 (07:30→21:00)
[2023-05-07] MEDS: 0.9%NACL 1000ML 1,000 ML IV SCH (08:00)
[2023-05-07] MEDS: CLOPIDOGREL 75MG TAB PO SCH (09:00)
[2023-05-07] MEDS: AMLODIPINE 5 MG TAB PO SCH (09:00)
[2023-05-07] MEDS: ASPIRIN 81 MG EC TAB PO SCH (09:00)
[2023-05-07] MEDS: CALCIUM CARBONATE PO SCH (09:00)
[2023-05-07] MEDS: ISOSORBIDE MONONITRATE 20 MG TABLET PO SCH (09:00)
[2023-05-07] MEDS: SPIRONOLACTONE 25 MG TAB PO SCH ×2 (09:00→21:35)
[2023-05-07] MEDS: MULTIVITAMIN WITH MINERALS TABLET PO SCH (09:00)
[2023-05-07] MEDS: HYDRALAZINE 25MG TABLET PO SCH ×3 (09:00→21:36)
[2023-05-07] MEDS: IRON SUCROSE COMPLEX 300 MG in 0.9% NACL 250ML 250 ML IV SCH (09:00)
[2023-05-07] MEDS: Vitamin B Complex/Vit C/Folic Acid PO SCH (09:00)
[2023-05-07] MEDS: VITAMIN D3 PO SCH (09:00)
[2023-05-07] MEDS: LISINOPRIL 40 MG TABLET PO SCH (09:00)
[2023-05-07] MEDS: FUROSEMIDE 20 MG TABLET PO SCH ×2 (09:00→21:36)
[2023-05-07] MEDS: TAMSULOSIN HCL 0.4 MG CAP.ER.24H PO SCH (09:00)
[2023-05-07 10:30] LABS: POTASSIUM 3.9 mmol/L (3.5-5.1)
[2023-05-07] MEDS ORDERED: FENTANYL CITRATE PF 50 MCG/1 ML 2ML VIAL ONE ×2 (13:30→15:05)
[2023-05-07] MEDS ORDERED: LIDOCAINE HCL 1% 20 ML VIAL ONE (13:30)
[2023-05-07] MEDS ORDERED: HEPARIN 10,000 UNIT/10ML (1,000 UNIT/ML) VIAL ONE (13:31)
[2023-05-07] MEDS ORDERED: IODIXANOL 320 MG/ML 100 ML VIAL ONE ×2 (13:31→15:32)
[2023-05-07] MEDS ORDERED: MIDAZOLAM HCL 1 MG/ML 2ML VIAL ONE (13:31)
[2023-05-07] MEDS ORDERED: NITROGLYCERIN 50MG VIAL ONE (13:33)
[2023-05-07] MEDS ORDERED: SODIUM BICARB 50MEQ 50ML VIAL 50 ML ONE (13:40)
[2023-05-07] MEDS ORDERED: LABETALOL 20MG SYG IV ONE ×2 (13:50→16:11)
[2023-05-07] MEDS ORDERED: ASPIRIN 81MG CHEW TAB ONE (16:28)
[2023-05-07] MEDS ORDERED: CLOPIDOGREL 300MG TAB ONE (16:28)
[2023-05-07 16:44] LABS: HEMATOCRIT 25.7 % (42-54); MEAN CORPUSCULAR HEMOGLOBIN 29.8 pg (27.0-33.0); MEAN CORPUSCULAR HGB CONC 33.5 g/dL (32.0-36.0); MEAN CORPUSCULAR VOLUME 88.9 fL (79-99); RED BLOOD CELL COUNT(AUTO) 2.89 MIL/uL (4.50-6.20); RED CELL DISTRIBUTION WIDTH 14.8 % (11.0-15.5)
[2023-05-07] MEDS ORDERED: 0.9%NACL 1000ML 1,000 ML IV SCH (17:00)
[2023-05-07] MEDS: VANCOMYCIN 750MG VIAL IVPB SCH (21:29)
[2023-05-07] MEDS: ATORVASTATIN 40 MG TABLET PO SCH (21:36)
[2023-05-07] MEDS: CETIRIZINE HCL 5 MG TABLET PO SCH (21:36)
[2023-05-07] MEDS: HYDROCODONE/ACETAMINOPHEN 5/325 MG TAB PO PRN (23:54)
[2023-05-08] VITALS (7 sets, daily range): BP systolic 151–181; BP diastolic 55–78; PULSE 65–80; RESP 18–20; O2SAT 98
[2023-05-08] MEDS: CEFEPIME HCL 2 GM VIAL IVPB SCH ×2 (03:30→15:21)
[2023-05-08] MEDS: HEPARIN 5,000 UNIT VIAL SQ SCH ×2 (04:46→15:30)
[2023-05-08 04:58] LABS: HEMATOCRIT 22.7 % (42-54); MEAN CORPUSCULAR HEMOGLOBIN 29.4 pg (27.0-33.0); MEAN CORPUSCULAR HGB CONC 32.6 g/dL (32.0-36.0); MEAN CORPUSCULAR VOLUME 90.1 fL (79-99); NUCLEATED RED BLOOD CELLS 0.3 % (0.0-0.19); RED BLOOD CELL COUNT(AUTO) 2.52 MIL/uL (4.50-6.20); WHITE BLOOD COUNT (AUTO) 6.4 K/uL (4.8-10.8)
[2023-05-08 05:13] LABS: CREATININE 1.9 mg/dL (0.5-1.5)
[2023-05-08] MEDS: INSULIN HUMULIN R 100 UNIT/ML 3ML SQ SCH ×4 (06:35→20:19)
[2023-05-08] MEDS: IRON SUCROSE COMPLEX 300 MG in 0.9% NACL 250ML 250 ML IV SCH (08:16)
[2023-05-08] MEDS: ISOSORBIDE MONONITRATE 20 MG TABLET PO SCH (09:19)
[2023-05-08] MEDS: TAMSULOSIN HCL 0.4 MG CAP.ER.24H PO SCH (09:19)
[2023-05-08] MEDS: FUROSEMIDE 20 MG TABLET PO SCH ×2 (09:20→20:32)
[2023-05-08] MEDS: ASPIRIN 81 MG EC TAB PO SCH (09:21)
[2023-05-08] MEDS: LISINOPRIL 40 MG TABLET PO SCH (09:21)
[2023-05-08] MEDS: SPIRONOLACTONE 25 MG TAB PO SCH ×2 (09:22→20:32)
[2023-05-08] MEDS: HYDRALAZINE 25MG TABLET PO SCH ×3 (09:22→20:32)
[2023-05-08] MEDS: CLOPIDOGREL 75MG TAB PO SCH (09:22)
[2023-05-08] MEDS: Vitamin B Complex/Vit C/Folic Acid PO SCH (09:22)
[2023-05-08] MEDS: MULTIVITAMIN WITH MINERALS TABLET PO SCH (09:23)
[2023-05-08] MEDS: VITAMIN D3 PO SCH (09:23)
[2023-05-08] MEDS: AMLODIPINE 5 MG TAB PO SCH (09:23)
[2023-05-08] MEDS: CALCIUM CARBONATE PO SCH (09:23)
[2023-05-08] MEDS: VANCOMYCIN 750MG VIAL IVPB SCH (18:08)
[2023-05-08] MEDS: CETIRIZINE HCL 5 MG TABLET PO SCH (20:32)
[2023-05-08] MEDS: ATORVASTATIN 40 MG TABLET PO SCH (20:32)
[2023-05-08] MEDS: EPOETIN ALFA-EPBX (NON-ESRD) 10,000 UNIT/ML VIAL SQ SCH (20:33)
[2023-05-09] VITALS (7 sets, daily range): BP systolic 133–156; BP diastolic 54–73; PULSE 63–73; RESP 18–20; O2SAT 98
[2023-05-09] MEDS: CEFEPIME HCL 2 GM VIAL IVPB SCH ×2 (03:18→15:55)
[2023-05-09] MEDS: HEPARIN 5,000 UNIT VIAL SQ SCH ×2 (03:24→15:55)
[2023-05-09 05:20] LABS: BASOPHILS # (AUTO) 0.02 K/uL (0.00-0.20); BASOPHILS % (AUTO) 0.3 % (0.0-5.0); EOSINOPHILS # (AUTO) 0.16 K/uL (0.00-0.70); EOSINOPHILS % (AUTO) 2.4 % (0.0-8.0); HEMATOCRIT 24.3 % (42-54); IMMATURE GRANULOCYTE ABSOLUTE 0.12 K/uL (0-1); LYMPHOCYTES # (AUTO) 1.1 K/uL (1.0-4.8); LYMPHOCYTES % (AUTO) 16.6 % (21.0-51.0); MEAN CORPUSCULAR HEMOGLOBIN 29.5 pg (27.0-33.0); MEAN CORPUSCULAR HGB CONC 32.9 g/dL (32.0-36.0); MEAN CORPUSCULAR VOLUME 89.7 fL (79-99); MONOCYTES # (AUTO) 0.7 K/uL (0.1-1.0); MONOCYTES % (AUTO) 10.7 % (3.0-13.0); NEUTROPHILS # (AUTO) 4.5 K/uL (1.8-7.7); NEUTROPHILS % (AUTO) 68.2 % (40.0-77.0); NUCLEATED RED BLOOD CELLS 0.6 % (0.0-0.19); PLATELET COUNT (AUTO) 166 K/uL (130-400); RED BLOOD CELL COUNT(AUTO) 2.71 MIL/uL (4.50-6.20); RED CELL DISTRIBUTION WIDTH 15.2 % (11.0-15.5); WHITE BLOOD COUNT (AUTO) 6.6 K/uL (4.8-10.8)
[2023-05-09 05:38] LABS: ALBUMIN 2.9 g/dL (3.5-5.0); BILIRUBIN,TOTAL 0.4 mg/dL (0.2-1.0); CREATININE 2.1 mg/dL (0.5-1.5); MAGNESIUM 1.5 mg/dL (1.80-2.40); POTASSIUM 3.7 mmol/L (3.5-5.1); TOTAL PROTEIN, SERUM 6.5 g/dL (6.0-8.3)
[2023-05-09] MEDS: INSULIN HUMULIN R 100 UNIT/ML 3ML SQ SCH ×4 (06:19→20:30)
[2023-05-09] MEDS: HYDROCODONE/ACETAMINOPHEN 5/325 MG TAB PO PRN ×2 (06:40→20:36)
[2023-05-09] MEDS: MAGNESIUM 2GM PREMIX 50ML 50 ML IV PRN (06:43)
[2023-05-09] MEDS: TAMSULOSIN HCL 0.4 MG CAP.ER.24H PO SCH (08:48)
[2023-05-09] MEDS: ISOSORBIDE MONONITRATE 20 MG TABLET PO SCH (08:48)
[2023-05-09] MEDS: CLOPIDOGREL 75MG TAB PO SCH (08:48)
[2023-05-09] MEDS: MULTIVITAMIN WITH MINERALS TABLET PO SCH (08:49)
[2023-05-09] MEDS: AMLODIPINE 5 MG TAB PO SCH (08:49)
[2023-05-09] MEDS: HYDRALAZINE 25MG TABLET PO SCH ×3 (08:49→20:29)
[2023-05-09] MEDS: ASPIRIN 81 MG EC TAB PO SCH (08:49)
[2023-05-09] MEDS: Vitamin B Complex/Vit C/Folic Acid PO SCH (08:49)
[2023-05-09] MEDS: SPIRONOLACTONE 25 MG TAB PO SCH ×2 (08:49→20:28)
[2023-05-09] MEDS: LISINOPRIL 40 MG TABLET PO SCH (08:50)
[2023-05-09] MEDS: CALCIUM CARBONATE PO SCH (08:50)
[2023-05-09] MEDS: VITAMIN D3 PO SCH (08:50)
[2023-05-09] MEDS: FUROSEMIDE 20 MG TABLET PO SCH ×2 (08:50→20:29)
[2023-05-09] MEDS: VANCOMYCIN 750MG VIAL IVPB SCH (17:04)
[2023-05-09] MEDS: CETIRIZINE HCL 5 MG TABLET PO SCH (20:28)
[2023-05-09] MEDS: ATORVASTATIN 40 MG TABLET PO SCH (20:28)
[2023-05-10] VITALS (8 sets, daily range): BP systolic 117–160; BP diastolic 53–81; PULSE 67–71; RESP 18–20; O2SAT 96–100
[2023-05-10] MEDS: CEFEPIME HCL 2 GM VIAL IVPB SCH ×2 (03:58→16:58)
[2023-05-10] MEDS: HEPARIN 5,000 UNIT VIAL SQ SCH ×2 (03:59→17:10)
[2023-05-10 05:32] LABS: ALBUMIN 2.8 g/dL (3.5-5.0); BILIRUBIN,TOTAL 0.3 mg/dL (0.2-1.0); POTASSIUM 3.7 mmol/L (3.5-5.1); TOTAL PROTEIN, SERUM 6.3 g/dL (6.0-8.3)
[2023-05-10] MEDS: INSULIN HUMULIN R 100 UNIT/ML 3ML SQ SCH ×4 (06:40→20:15)
[2023-05-10] MEDS: CALCIUM CARBONATE PO SCH (09:00)
[2023-05-10] MEDS: VITAMIN D3 PO SCH (09:00)
[2023-05-10] MEDS: Vitamin B Complex/Vit C/Folic Acid PO SCH (09:07)
[2023-05-10] MEDS: MULTIVITAMIN WITH MINERALS TABLET PO SCH (09:07)
[2023-05-10] MEDS: LISINOPRIL 40 MG TABLET PO SCH (09:08)
[2023-05-10] MEDS: FUROSEMIDE 20 MG TABLET PO SCH ×2 (09:08→20:13)
[2023-05-10] MEDS: CLOPIDOGREL 75MG TAB PO SCH (09:08)
[2023-05-10] MEDS: ISOSORBIDE MONONITRATE 20 MG TABLET PO SCH (09:08)
[2023-05-10] MEDS: AMLODIPINE 5 MG TAB PO SCH (09:08)
[2023-05-10] MEDS: TAMSULOSIN HCL 0.4 MG CAP.ER.24H PO SCH (09:08)
[2023-05-10] MEDS: HYDRALAZINE 25MG TABLET PO SCH ×3 (09:08→20:12)
[2023-05-10] MEDS: ASPIRIN 81 MG EC TAB PO SCH (09:09)
[2023-05-10] MEDS: SPIRONOLACTONE 25 MG TAB PO SCH ×2 (09:09→20:12)
[2023-05-10] MEDS: LINEZOLID 600 MG/ISO-OSM 300 ML IV SCH (20:12)
[2023-05-10] MEDS: ATORVASTATIN 40 MG TABLET PO SCH (20:13)
[2023-05-10] MEDS: CETIRIZINE HCL 5 MG TABLET PO SCH (20:13)
[2023-05-11] VITALS (7 sets, daily range): BP systolic 114–153; BP diastolic 49–74; PULSE 60–79; RESP 16–20; O2SAT 99
[2023-05-11] MEDS: CEFEPIME HCL 2 GM VIAL IVPB SCH ×2 (04:21→15:43)
[2023-05-11] MEDS: HEPARIN 5,000 UNIT VIAL SQ SCH ×2 (04:29→15:44)
[2023-05-11 05:44] LABS: BASOPHILS # (AUTO) 0.03 K/uL (0.00-0.20); BASOPHILS % (AUTO) 0.4 % (0.0-5.0); EOSINOPHILS # (AUTO) 0.25 K/uL (0.00-0.70); EOSINOPHILS % (AUTO) 3.3 % (0.0-8.0); HEMATOCRIT 27.4 % (42-54); IMMATURE GRANULOCYTE ABSOLUTE 0.11 K/uL (0-1); LYMPHOCYTES # (AUTO) 1.1 K/uL (1.0-4.8); LYMPHOCYTES % (AUTO) 14.5 % (21.0-51.0); MEAN CORPUSCULAR HEMOGLOBIN 29.7 pg (27.0-33.0); MEAN CORPUSCULAR HGB CONC 32.1 g/dL (32.0-36.0); MEAN CORPUSCULAR VOLUME 92.6 fL (79-99); MONOCYTES # (AUTO) 0.7 K/uL (0.1-1.0); MONOCYTES % (AUTO) 9.8 % (3.0-13.0); NEUTROPHILS # (AUTO) 5.3 K/uL (1.8-7.7); NEUTROPHILS % (AUTO) 70.5 % (40.0-77.0); NUCLEATED RED BLOOD CELLS 0.7 % (0.0-0.19); PLATELET COUNT (AUTO) 200 K/uL (130-400); RED BLOOD CELL COUNT(AUTO) 2.96 MIL/uL (4.50-6.20); RED CELL DISTRIBUTION WIDTH 16.1 % (11.0-15.5); WHITE BLOOD COUNT (AUTO) 7.5 K/uL (4.8-10.8)
[2023-05-11 05:53] LABS: POTASSIUM 3.7 mmol/L (3.5-5.1)
[2023-05-11] MEDS: INSULIN HUMULIN R 100 UNIT/ML 3ML SQ SCH ×4 (06:28→21:01)
[2023-05-11] MEDS: Vitamin B Complex/Vit C/Folic Acid PO SCH (08:18)
[2023-05-11] MEDS: LISINOPRIL 40 MG TABLET PO SCH (08:19)
[2023-05-11] MEDS: ISOSORBIDE MONONITRATE 20 MG TABLET PO SCH (08:19)
[2023-05-11] MEDS: TAMSULOSIN HCL 0.4 MG CAP.ER.24H PO SCH (08:21)
[2023-05-11] MEDS: SPIRONOLACTONE 25 MG TAB PO SCH ×2 (08:21→20:21)
[2023-05-11] MEDS: FUROSEMIDE 20 MG TABLET PO SCH ×2 (08:21→20:20)
[2023-05-11] MEDS: LINEZOLID 600 MG/ISO-OSM 300 ML IV SCH ×2 (08:21→20:18)
[2023-05-11] MEDS: AMLODIPINE 5 MG TAB PO SCH (08:21)
[2023-05-11] MEDS: MULTIVITAMIN WITH MINERALS TABLET PO SCH (08:21)
[2023-05-11] MEDS: CLOPIDOGREL 75MG TAB PO SCH (08:21)
[2023-05-11] MEDS: ASPIRIN 81 MG EC TAB PO SCH (08:21)
[2023-05-11] MEDS: CALCIUM CARBONATE PO SCH (08:22)
[2023-05-11] MEDS: VITAMIN D3 PO SCH (08:22)
[2023-05-11] MEDS: HYDRALAZINE 25MG TABLET PO SCH ×3 (08:23→20:21)
[2023-05-11] MEDS ORDERED: DIPH,PERTUSS(ACELL),TET VAC/PF 0.5 ML VIAL IM ONE (15:00)
[2023-05-11] MEDS ORDERED: HONEY 1 APPL/ML TUBE TP ONE (18:22)
[2023-05-11] MEDS: CETIRIZINE HCL 5 MG TABLET PO SCH (20:20)
[2023-05-11] MEDS: ATORVASTATIN 40 MG TABLET PO SCH (20:21)
[2023-05-11] MEDS: HYDROCODONE/ACETAMINOPHEN 5/325 MG TAB PO PRN (20:42)
[2023-05-12 03:06] VITALS: BP 154/69; PULSE 78; RESP 20
[2023-05-12] MEDS: CEFEPIME HCL 2 GM VIAL IVPB SCH ×2 (03:44→16:10)
[2023-05-12] MEDS: HEPARIN 5,000 UNIT VIAL SQ SCH ×2 (03:45→16:12)
[2023-05-12 05:38] LABS: BASOPHILS # (AUTO) 0.03 K/uL (0.00-0.20); BASOPHILS % (AUTO) 0.5 % (0.0-5.0); EOSINOPHILS # (AUTO) 0.25 K/uL (0.00-0.70); EOSINOPHILS % (AUTO) 3.9 % (0.0-8.0); HEMATOCRIT 25.9 % (42-54); IMMATURE GRANULOCYTE ABSOLUTE 0.12 K/uL (0-1); LYMPHOCYTES % (AUTO) 15.6 % (21.0-51.0); MEAN CORPUSCULAR VOLUME 93.5 fL (79-99); MONOCYTES # (AUTO) 0.8 K/uL (0.1-1.0); MONOCYTES % (AUTO) 11.7 % (3.0-13.0); NEUTROPHILS # (AUTO) 4.3 K/uL (1.8-7.7); NEUTROPHILS % (AUTO) 66.5 % (40.0-77.0); NUCLEATED RED BLOOD CELLS 0.8 % (0.0-0.19); PLATELET COUNT (AUTO) 210 K/uL (130-400); RED BLOOD CELL COUNT(AUTO) 2.77 MIL/uL (4.50-6.20); RED CELL DISTRIBUTION WIDTH 16.6 % (11.0-15.5); WHITE BLOOD COUNT (AUTO) 6.5 K/uL (4.8-10.8)
[2023-05-12 05:46] LABS: CREATININE 3.2 mg/dL (0.5-1.5); MAGNESIUM 1.9 mg/dL (1.80-2.40); POTASSIUM 3.9 mmol/L (3.5-5.1)
[2023-05-12] MEDS: INSULIN HUMULIN R 100 UNIT/ML 3ML SQ SCH ×4 (05:50→21:15)
[2023-05-12] MEDS: MAGNESIUM 2GM PREMIX 50ML 50 ML IV PRN (06:29)
[2023-05-12 07:10] VITALS: BP 170/61; PULSE 56; RESP 18
[2023-05-12 08:50] VITALS: O2SAT 98
[2023-05-12] MEDS: LINEZOLID 600 MG/ISO-OSM 300 ML IV SCH ×2 (08:59→21:06)
[2023-05-12] MEDS: VITAMIN D3 PO SCH (09:00)
[2023-05-12] MEDS: SPIRONOLACTONE 25 MG TAB PO SCH ×2 (09:00→21:05)
[2023-05-12] MEDS: Vitamin B Complex/Vit C/Folic Acid PO SCH (09:00)
[2023-05-12] MEDS: AMLODIPINE 5 MG TAB PO SCH (09:00)
[2023-05-12] MEDS: ISOSORBIDE MONONITRATE 20 MG TABLET PO SCH (09:00)
[2023-05-12] MEDS: MULTIVITAMIN WITH MINERALS TABLET PO SCH (09:00)
[2023-05-12] MEDS: CALCIUM CARBONATE PO SCH (09:00)
[2023-05-12] MEDS: HYDRALAZINE 25MG TABLET PO SCH ×3 (09:00→21:06)
[2023-05-12] MEDS: TAMSULOSIN HCL 0.4 MG CAP.ER.24H PO SCH (09:00)
[2023-05-12] MEDS: LISINOPRIL 40 MG TABLET PO SCH (09:01)
[2023-05-12] MEDS: CLOPIDOGREL 75MG TAB PO SCH (09:01)
[2023-05-12] MEDS: FUROSEMIDE 20 MG TABLET PO SCH ×2 (09:01→21:06)
[2023-05-12] MEDS: ASPIRIN 81 MG EC TAB PO SCH (09:01)
[2023-05-12 11:20] VITALS: BP 149/53; PULSE 66; RESP 20
[2023-05-12 16:10] VITALS: BP 155/53; PULSE 64; RESP 18
[2023-05-12 19:00] VITALS: BP 147/61; PULSE 71; RESP 18
[2023-05-12] MEDS: ATORVASTATIN 40 MG TABLET PO SCH (21:06)
[2023-05-12] MEDS: CETIRIZINE HCL 5 MG TABLET PO SCH (21:06)
[2023-05-12] MEDS: HYDROCODONE/ACETAMINOPHEN 5/325 MG TAB PO PRN (21:11)
[2023-05-13] VITALS: BP 154/65; PULSE 70; RESP 18
[2023-05-13] MEDS: CEFEPIME HCL 2 GM VIAL IVPB SCH ×2 (03:31→16:00)
[2023-05-13] MEDS: HEPARIN 5,000 UNIT VIAL SQ SCH ×2 (03:37→16:00)
[2023-05-13] MEDS: INSULIN HUMULIN R 100 UNIT/ML 3ML SQ SCH ×4 (07:30→21:00)
[2023-05-13] MEDS: LINEZOLID 600 MG/ISO-OSM 300 ML IV SCH ×2 (08:00→20:00)
[2023-05-13] MEDS: MULTIVITAMIN WITH MINERALS TABLET PO SCH (09:00)
[2023-05-13] MEDS: TAMSULOSIN HCL 0.4 MG CAP.ER.24H PO SCH (09:00)
[2023-05-13] MEDS: Vitamin B Complex/Vit C/Folic Acid PO SCH (09:00)
[2023-05-13] MEDS: HYDRALAZINE 25MG TABLET PO SCH ×3 (09:00→21:00)
[2023-05-13] MEDS: VITAMIN D3 PO SCH (09:00)
[2023-05-13] MEDS: ISOSORBIDE MONONITRATE 20 MG TABLET PO SCH (09:00)
[2023-05-13] MEDS: CALCIUM CARBONATE PO SCH (09:00)
[2023-05-13] MEDS: CLOPIDOGREL 75MG TAB PO SCH (09:00)
[2023-05-13] MEDS: SPIRONOLACTONE 25 MG TAB PO SCH ×2 (09:00→21:00)
[2023-05-13] MEDS: ASPIRIN 81 MG EC TAB PO SCH (09:00)
[2023-05-13] MEDS: FUROSEMIDE 20 MG TABLET PO SCH ×2 (09:00→21:00)
[2023-05-13] MEDS: AMLODIPINE 5 MG TAB PO SCH (09:00)
[2023-05-13] MEDS: LISINOPRIL 40 MG TABLET PO SCH (09:00)
[2023-05-13] MEDS: ATORVASTATIN 40 MG TABLET PO SCH (21:00)
[2023-05-13] MEDS: CETIRIZINE HCL 5 MG TABLET PO SCH (21:00)
[2023-05-14] VITALS (7 sets, daily range): BP systolic 137–166; BP diastolic 54–68; PULSE 65–76; RESP 18–19; O2SAT 94–100
[2023-05-14 00:36] LABS: ALBUMIN 2.7 g/dL (3.5-5.0); BILIRUBIN,TOTAL 0.3 mg/dL (0.2-1.0); CREATININE 3.4 mg/dL (0.5-1.5); POTASSIUM 3.7 mmol/L (3.5-5.1); TOTAL PROTEIN, SERUM 6.1 g/dL (6.0-8.3)
[2023-05-14] MEDS: CEFEPIME HCL 2 GM VIAL IVPB SCH ×2 (03:33→14:48)
[2023-05-14] MEDS: HEPARIN 5,000 UNIT VIAL SQ SCH ×2 (03:34→14:51)
[2023-05-14] MEDS: INSULIN HUMULIN R 100 UNIT/ML 3ML SQ SCH ×4 (05:17→20:41)
[2023-05-14] MEDS: VITAMIN D3 PO SCH (09:00)
[2023-05-14] MEDS: CALCIUM CARBONATE PO SCH (09:00)
[2023-05-14] MEDS: LINEZOLID 600 MG/ISO-OSM 300 ML IV SCH ×2 (09:06→19:59)
[2023-05-14] MEDS: CLOPIDOGREL 75MG TAB PO SCH (09:07)
[2023-05-14] MEDS: ASPIRIN 81 MG EC TAB PO SCH (09:07)
[2023-05-14] MEDS: MULTIVITAMIN WITH MINERALS TABLET PO SCH (09:07)
[2023-05-14] MEDS: TAMSULOSIN HCL 0.4 MG CAP.ER.24H PO SCH (09:07)
[2023-05-14] MEDS: Vitamin B Complex/Vit C/Folic Acid PO SCH (09:07)
[2023-05-14] MEDS: FUROSEMIDE 20 MG TABLET PO SCH ×2 (09:07→20:01)
[2023-05-14] MEDS: ISOSORBIDE MONONITRATE 20 MG TABLET PO SCH (09:07)
[2023-05-14] MEDS: SPIRONOLACTONE 25 MG TAB PO SCH ×2 (09:08→20:01)
[2023-05-14] MEDS: LISINOPRIL 40 MG TABLET PO SCH (09:08)
[2023-05-14] MEDS: HYDRALAZINE 25MG TABLET PO SCH ×3 (09:09→20:01)
[2023-05-14] MEDS: AMLODIPINE 5 MG TAB PO SCH (09:11)
[2023-05-14] MEDS: CETIRIZINE HCL 5 MG TABLET PO SCH (20:01)
[2023-05-14] MEDS: ATORVASTATIN 40 MG TABLET PO SCH (20:01)
[2023-05-15] VITALS (8 sets, daily range): BP systolic 129–154; BP diastolic 50–80; PULSE 69–83; RESP 18; O2SAT 100
[2023-05-15] MEDS: CEFEPIME HCL 2 GM VIAL IVPB SCH ×2 (03:10→15:24)
[2023-05-15] MEDS: HEPARIN 5,000 UNIT VIAL SQ SCH ×2 (03:14→17:31)
[2023-05-15 05:03] LABS: HEMATOCRIT 25.6 % (42-54); MEAN CORPUSCULAR HEMOGLOBIN 30.4 pg (27.0-33.0); MEAN CORPUSCULAR HGB CONC 32.8 g/dL (32.0-36.0); MEAN CORPUSCULAR VOLUME 92.8 fL (79-99); RED BLOOD CELL COUNT(AUTO) 2.76 MIL/uL (4.50-6.20); RED CELL DISTRIBUTION WIDTH 17.6 % (11.0-15.5)
[2023-05-15 05:22] LABS: ALBUMIN 2.9 g/dL (3.5-5.0); BILIRUBIN,TOTAL 0.4 mg/dL (0.2-1.0); CREATININE 4.6 mg/dL (0.5-1.5); PHOSPHORUS 3.7 mg/dL (2.5-4.9); POTASSIUM 3.8 mmol/L (3.5-5.1); TOTAL PROTEIN, SERUM 6.7 g/dL (6.0-8.3)
[2023-05-15] MEDS: INSULIN HUMULIN R 100 UNIT/ML 3ML SQ SCH ×4 (05:40→21:33)
[2023-05-15 09:49] LABS: HEMATOCRIT 25.3 % (42-54); MEAN CORPUSCULAR HEMOGLOBIN 29.6 pg (27.0-33.0); MEAN CORPUSCULAR HGB CONC 31.6 g/dL (32.0-36.0); MEAN CORPUSCULAR VOLUME 93.7 fL (79-99); NUCLEATED RED BLOOD CELLS 0.5 % (0.0-0.19); RED BLOOD CELL COUNT(AUTO) 2.7 MIL/uL (4.50-6.20); RED CELL DISTRIBUTION WIDTH 17.2 % (11.0-15.5); WHITE BLOOD COUNT (AUTO) 6.2 K/uL (4.8-10.8)
[2023-05-15] MEDS: LINEZOLID 600 MG/ISO-OSM 300 ML IV SCH ×2 (10:14→19:47)
[2023-05-15] MEDS: AMLODIPINE 5 MG TAB PO SCH (10:19)
[2023-05-15] MEDS: Vitamin B Complex/Vit C/Folic Acid PO SCH (10:19)
[2023-05-15] MEDS: LISINOPRIL 40 MG TABLET PO SCH (10:19)
[2023-05-15] MEDS: ISOSORBIDE MONONITRATE 20 MG TABLET PO SCH (10:20)
[2023-05-15] MEDS: TAMSULOSIN HCL 0.4 MG CAP.ER.24H PO SCH (10:21)
[2023-05-15] MEDS: FUROSEMIDE 20 MG TABLET PO SCH ×2 (10:21→19:47)
[2023-05-15] MEDS: CLOPIDOGREL 75MG TAB PO SCH (10:21)
[2023-05-15] MEDS: ASPIRIN 81 MG EC TAB PO SCH (10:21)
[2023-05-15] MEDS: MULTIVITAMIN WITH MINERALS TABLET PO SCH (10:21)
[2023-05-15] MEDS: VITAMIN D3 PO SCH (10:27)
[2023-05-15] MEDS: CALCIUM CARBONATE PO SCH (10:27)
[2023-05-15] MEDS: SPIRONOLACTONE 25 MG TAB PO SCH ×2 (10:30→19:47)
[2023-05-15] MEDS: HYDRALAZINE 25MG TABLET PO SCH ×3 (10:30→19:47)
[2023-05-15] MEDS: EPOETIN ALFA-EPBX (NON-ESRD) 10,000 UNIT/ML VIAL SQ SCH (10:36)
[2023-05-15] MEDS: 0.9%NACL 1000ML 1,000 ML IV SCH (15:24)
[2023-05-15 15:37] LABS: INR 0.98 (0.85-1.15); PROTHROMBIN TIME 11.4 SEC (9.6-11.6)
[2023-05-15] MEDS: INSULIN LISPRO 100 UNIT/ML 3ML SQ SCH (17:29)
[2023-05-15] MEDS: CETIRIZINE HCL 5 MG TABLET PO SCH (19:47)
[2023-05-15] MEDS: ATORVASTATIN 40 MG TABLET PO SCH (19:47)
[2023-05-15] MEDS ORDERED: INSULIN GLARGINE 100 UNITS/ML 10 ML VIAL SQ SCH (21:00)
[2023-05-16 00:01] VITALS: BP 161/74; PULSE 85; RESP 18
[2023-05-16] MEDS: CEFEPIME HCL 2 GM VIAL IVPB SCH (03:40)
[2023-05-16] MEDS: 0.9%NACL 1000ML 1,000 ML IV SCH (03:44)
[2023-05-16] MEDS: HEPARIN 5,000 UNIT VIAL SQ SCH ×2 (03:44→17:05)
[2023-05-16 03:48] VITALS: BP 159/73; PULSE 78; RESP 18
[2023-05-16 05:40] LABS: HEMATOCRIT 24.6 % (42-54); MEAN CORPUSCULAR HEMOGLOBIN 30.7 pg (27.0-33.0); MEAN CORPUSCULAR HGB CONC 32.9 g/dL (32.0-36.0); MEAN CORPUSCULAR VOLUME 93.2 fL (79-99); PLATELET COUNT (AUTO) 174 K/uL (130-400); RED BLOOD CELL COUNT(AUTO) 2.64 MIL/uL (4.50-6.20); RED CELL DISTRIBUTION WIDTH 17.8 % (11.0-15.5); WHITE BLOOD COUNT (AUTO) 5.8 K/uL (4.8-10.8)
[2023-05-16 05:55] LABS: ALBUMIN 2.7 g/dL (3.5-5.0); BILIRUBIN,TOTAL 0.4 mg/dL (0.2-1.0); CREATININE 4.4 mg/dL (0.5-1.5); TOTAL PROTEIN, SERUM 6.4 g/dL (6.0-8.3)
[2023-05-16] MEDS: INSULIN HUMULIN R 100 UNIT/ML 3ML SQ SCH ×3 (05:55→15:30)
[2023-05-16 06:07] LABS: EOSINOPHILS % (MANUAL) 4 % (1-6); LYMPHOCYTES % (MANUAL) 14 % (22-44); MAN.DIFF COMMENT-IMPRESSION MANUAL DIFFERENTIAL; MONOCYTES % (MANUAL) 10 % (2-9); SEGMENTED NEUTROPHILS % 72 % (40-70); TOTAL CELLS COUNTED 100
[2023-05-16 06:08] LABS: PLATELET MORPHOLOGY COMMENT ADEQUATE
[2023-05-16] MEDS: INSULIN LISPRO 100 UNIT/ML 3ML SQ SCH ×3 (06:53→17:07)
[2023-05-16 08:00] VITALS: BP 154/58; PULSE 70; RESP 18
[2023-05-16] MEDS: VITAMIN D3 PO SCH (09:00)
[2023-05-16] MEDS: CALCIUM CARBONATE PO SCH (09:00)
[2023-05-16] MEDS: HYDRALAZINE 25MG TABLET PO SCH ×2 (09:16→14:30)
[2023-05-16] MEDS: CLOPIDOGREL 75MG TAB PO SCH (09:16)
[2023-05-16] MEDS: MULTIVITAMIN WITH MINERALS TABLET PO SCH (09:17)
[2023-05-16] MEDS: AMLODIPINE 5 MG TAB PO SCH (09:17)
[2023-05-16] MEDS: FUROSEMIDE 20 MG TABLET PO SCH (09:17)
[2023-05-16] MEDS: SPIRONOLACTONE 25 MG TAB PO SCH (09:18)
[2023-05-16] MEDS: LISINOPRIL 40 MG TABLET PO SCH (09:18)
[2023-05-16] MEDS: TAMSULOSIN HCL 0.4 MG CAP.ER.24H PO SCH (09:18)
[2023-05-16] MEDS: ISOSORBIDE MONONITRATE 20 MG TABLET PO SCH (09:19)
[2023-05-16] MEDS: Vitamin B Complex/Vit C/Folic Acid PO SCH (09:19)
[2023-05-16] MEDS: LINEZOLID 600 MG/ISO-OSM 300 ML IV SCH (09:19)
[2023-05-16 09:20] VITALS: O2SAT 100
[2023-05-16] MEDS: ASPIRIN 81 MG EC TAB PO SCH (09:25)
[2023-05-16 12:00] VITALS: BP 120/54; PULSE 67; RESP 16
[2023-05-16 14:08] LABS: APPEARANCE,URINE CLOUDY (CLEAR); BILIRUBIN,URINE NEGATIVE (NEGATIVE); COLOR,URINE YELLOW (YELLOW); GLUCOSE, URINE (UA) NEGATIVE (NEGATIVE); KETONES,URINE NEGATIVE (NEGATIVE); LEUKOCYTE ESTERASE ,URINE NEGATIVE Leu/uL (NEGATIVE); NITRATE,URINE NEGATIVE (NEGATIVE); OCCULT BLOOD,URINE SMALL (NEGATIVE); PH,URINE 5.5 (5.0-8.0); PROTEIN,URINE 70 mg/dL (NEGATIVE); UROBILINOGEN,URINE 0.2 mg/dL (0.2-1.0)
[2023-05-16 14:09] LABS: ADD UA MICROSCOPIC YES
[2023-05-16 14:20] LABS: BACTERIA,URINE RARE /HPF (None Seen); SQUAMOUS EPITHELIAL CELL,UR RARE /HPF (0-2)
[2023-05-16 16:00] VITALS: BP 145/55; PULSE 70; RESP 18
[2023-05-16] MEDS ORDERED: CEFEPIME HCL 2 GM VIAL IVPB SCH (18:00)
== END 2023-05-16 19:40 | DRG 270 ==
LOC: EDH 11:15 → EDHIP 15:37 → 3CH 05-03 00:40
PROVIDERS: ADMIT Hospitalist; ATTEND Hospitalist
PROC: 047N3Z1 Dilation of Left Popliteal Artery using Drug-Coated Balloon, Percutaneous Approach (ICD-10-PCS; 2023-05-04)
PROC: 047S3Z1 Dilation of Left Posterior Tibial Artery using Drug-Coated Balloon, Percutaneous Approach (ICD-10-PCS; 2023-05-04)
PROC: B4101ZZ Fluoroscopy of Abdominal Aorta using Low Osmolar Contrast (ICD-10-PCS; 2023-05-04)
PROC: B41J1ZZ Fluoroscopy of Other Lower Arteries using Low Osmolar Contrast (ICD-10-PCS; 2023-05-04)
PROC: 04CP3ZZ Extirpation of Matter from Right Anterior Tibial Artery, Percutaneous Approach (ICD-10-PCS; principal; 2023-05-07)
PROC: 047P34Z Dilation of Right Anterior Tibial Artery with Drug-eluting Intraluminal Device, Percutaneous Approach (ICD-10-PCS; 2023-05-07)
PROC: B41J1ZZ Fluoroscopy of Other Lower Arteries using Low Osmolar Contrast (ICD-10-PCS; 2023-05-07)
DX: E11.52 Type 2 diabetes mellitus with diabetic peripheral angiopathy with gangrene (principal); I50.33 Acute on chronic diastolic (congestive) heart failure; L03.115 Cellulitis of right lower limb; L03.116 Cellulitis of left lower limb; N17.9 Acute kidney failure, unspecified; I13.0 Hypertensive heart and chronic kidney disease with heart failure and stage 1 through stage 4 chronic kidney disease, or unspecified chronic kidney disease; M86.8X7 Other osteomyelitis, ankle and foot; E11.628 Type 2 diabetes mellitus with other skin complications; E11.69 Type 2 diabetes mellitus with other specified complication; E11.22 Type 2 diabetes mellitus with diabetic chronic kidney disease; D64.9 Anemia, unspecified; E78.00 Pure hypercholesterolemia, unspecified; I25.10 Atherosclerotic heart disease of native coronary artery without angina pectoris; N18.1 Chronic kidney disease, stage 1; E11.65 Type 2 diabetes mellitus with hyperglycemia; D63.8 Anemia in other chronic diseases classified elsewhere; Z95.1 Presence of aortocoronary bypass graft; Z95.810 Presence of automatic (implantable) cardiac defibrillator; Z83.3 Family history of diabetes mellitus
CPT/HCPCS: 36415; 37224; 37228; 37231; 73630; 75716; 75774; 76770; 80048; 80053; 80202; 81001; 82550; 82728; 82948; 83540; 83550; 83605; 83735; 84100; 84145; 84484; 84550; 85025; 85027; 85045; 85347; 85610; 85651; 85730; 87040; 87088; 90715; 93452; 93925; 97039; 99156; 99157; C1760; C1893; C1894; G0378; J0692; J1644; J1756; J1815; J2020; J2250; J3010; J3370; J3475; J3490; J7050; Q9967; C1725; C1769; C1874; C1887; C2623; Q5106